=== PATIENT | female | born 1975 | race Asian ===

== ENCOUNTER 2020-06-29 08:14 | Outpatient (REF) | payer OTHER, SELFPAY ==
--- NOTE | 2020-06-29 08:18 | MM_ITS ---
EXAMINATION: MM SCREENING DIGITAL BREAST TOMOSYNTHESIS, BILATERAL CLINICAL INFORMATION: Screening. Asymptomatic. The lifetime risk of breast cancer based on the Tyrer-Cuzick Model is 7.3%. COMPARISON: Mammography: April 07, 2019 and studies dating back to March 26, 2018 TECHNIQUE: Digital breast tomosynthesis is performed in both the craniocaudal and mediolateral oblique views along with computer-aided detection (CAD). Synthesized 2D images are generated from the tomosynthesis. FINDINGS: The breasts are extremely dense, which lowers the sensitivity of mammography (ACR BI-RADS breast composition Category d). There are no significant masses, abnormal calcifications, or other abnormalities. MM/MM tomosynthesis screening BI IMPRESSION: There are no significant changes from prior study. ASSESSMENT: BI-RADS 1: Negative RECOMMENDATION: Routine annual mammography screening. This patient's information was entered into a reminder system with a target due date for their next mammogram.
== END 2020-06-29 08:15 | disposition home or self-care (01) ==
LOC: HO.MAMMO 08:14
PROVIDERS: PCP Internal Medicine; Visit Provider Internal Medicine
DX: Z12.31 Encounter for screening mammogram for malignant neoplasm of breast (principal)
CPT/HCPCS: 77063; 77067

== ENCOUNTER 2020-08-06 08:08 | Outpatient (REF) | payer OTHER, SELFPAY | END 2020-08-06 08:09 | disposition home or self-care (01) | LOC: HO.HMGCLDS 08:08 | PROVIDERS: PCP Internal Medicine; Visit Provider Internal Medicine | DX: Z20.822 Contact with and (suspected) exposure to COVID-19 (principal) | CPT/HCPCS: 36415; C9803; U0003; U0005 ==

== ENCOUNTER 2021-01-12 07:05 | Outpatient (REF) | payer OTHER, SELFPAY ==
[2021-01-12 11:25] LABS: Hematocrit 41.8 % (37-47); Hemoglobin 13.1 g/dl (12.0-16.0); Mean Corpuscular HGB Conc 31.3 g/dl (31.0-35.0); Mean Corpuscular Hemoglobin 25.2 pg (27.0-33.0); Mean Corpuscular Volume 80.5 fL (80-98); Mean Platelet Volume 10.1 fL (9.4-12.3); Platelet Count 249 X10*3/uL (160-400); Red Blood Count 5.19 X10*6/uL (4.20-5.50); Red Cell Distribution Width 13.5 % (11.0-16.0); White Blood Count 7.3 X10*3/uL (4.8-10.8)
[2021-01-12 11:54] LABS: Alanine Aminotransferase 14 U/L (0-31); Albumin Level 4.2 g/dL (3.5-5.0); Alkaline Phosphatase 74 U/L (39-117); Anion Gap 13 (12-20); Aspartate Amino Transferase 16 U/L (5-31); Bilirubin Total 0.5 mg/dL (0.0-1.0); Blood Urea Nitrogen 17 mg/dL (9-16); Carbon Dioxide 23 mmol/L (22-29); Chloride 107 mmol/L (96-108); Cholesterol 193 mg/dL; Estimated Glomerular Filt Rate > 60; Glucose Fasting 96 mg/dL (60-99); HDL Cholesterol 48 mg/dL; LDL Cholesterol Calculated 119 mg/dl; Potassium 4.3 mmol/L (3.3-5.1); Sodium 139 mmol/L (135-145); Triglycerides 133 mg/dL
== END 2021-01-12 07:06 | disposition home or self-care (01) ==
LOC: HO.HMGCLDS 07:05
PROVIDERS: PCP Internal Medicine; Visit Provider Internal Medicine
DX: Z00.00 Encounter for general adult medical examination without abnormal findings (principal)
CPT/HCPCS: 36415; 80053; 80061; 84443; 85027

== ENCOUNTER 2021-03-04 09:00 | Outpatient (RCR) | payer OTHER, SELFPAY ==
--- NOTE | 2020-11-19 12:29 | MHC.PT.EP ---
[facility] [place] Office [place] Office [place] Office [address] Ynes Kaiser [address] [phone] F: [phone] F: [phone] F: [phone] F: [phone] Physical Therapy Plan of Care Date of Evaluation: Date of Surgery: Diagnosis: dorsalgia Assessment: 44 y/o female presents to PT with referral for dorsalgia. Pt complains of low-grade consistent pain in mid-low thoracic area and lumbar region. 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 Of note, there are no significant alleviating factors . Examination shows decreased strength in core/hips, decreased HS/hip flexor/ITB/quad muscle length, increased paraspinal tissue tension, ?SI dysfunction, and impaired postural awareness resulting in pain and difficulty work, sleep, prolonged standing, supervisor post wave, and play with children without pain. S/s consistent with postural dysfunction. Pt would benefit from PT 2x/week for 5 weeks to address impairments, implement HEP, increase strength, and return to PLOF. Pt only able to come 1x/week due to scheduling problems. Frequency and Duration: The patient will be seen 1x/week for 5 weeks Short Term Goals: 2 weeks 1. Independent with HEP 2. Pt will change work station to be ergonomically correct following education and handouts to assist in decreasing pain. 3. 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 I with HEP and self-management of sx 2. Pt will perform ROM/stretching breaks every 20-30min while at work to alleviate sx 3. Pt will improve strength by one MMT grade to faciliate standing > 35min to assist with supervisor post wave Treatment Plan: Modalities to reduce pain, spasms and effusion. Manual therapy to restore motion and function. Therapeutic exercise to improve strength and flexibility. Neuromuscular re-education for posture and balance. Therapeutic activities to return to functional activities of daily living. Electronically signed by: Tiffany Hart PT Please sign and return to therapist. Thank you for your referral.
--- NOTE | 2021-03-04 10:59 | MHC.PT.DC ---
[facility] [place] Office [place] Office [place] Office [address] Ynes Kaiser [address] [phone] F: [phone] F: [phone] F: [phone] F: [phone] Physical Therapy Discharge Report Diagnosis: dorsalgia Date of Surgery: Date of Evaluation: 11/19/20 Date of Discharge: 03/04/21 Treatments to Date: 9 Cancellations to Date: 3 No Shows to Date: 0 Discharge Status: Achieved Goals Improved Function Independent with HEP Discharge Summary: Abigail has been an active participant in her therapy in the clinic with inconsistent home program compliance who has met most of her therapeutic goals, is improved of her pain and function and in agreement with DC at this time. Electronically signed by: Miles Allen PT. Please sign and return to therapist. Thank you for your referral.
== END 2021-03-04 10:59 | disposition home or self-care (01) ==
LOC: HO.PTCHIC 09:00
PROVIDERS: PCP Internal Medicine; Visit Provider Internal Medicine
DX: M54.9 Dorsalgia, unspecified (principal)
CPT/HCPCS: 97110; 97140; 97161; 97535

== ENCOUNTER 2021-05-21 11:09 | Outpatient (REF) | payer OTHER, SELFPAY | END 2021-05-21 11:10 | disposition home or self-care (01) | LOC: HO.LNP 11:09 | PROVIDERS: Visit Provider Physician Assistant Medical | DX: Z20.822 Contact with and (suspected) exposure to COVID-19 (principal) | CPT/HCPCS: U0003; U0005 ==

== ENCOUNTER 2021-05-25 07:00 | Outpatient (RCR) | payer OTHER, SELFPAY ==
--- NOTE | 2021-03-11 14:40 | MHC.PT.EP ---
[facility] [place] Office [place] Office [place] Office [address] Ynes Kaiser [address] [phone] F: [phone] F: [phone] F: [phone] F: [phone] Physical Therapy Plan of Care Date of Evaluation: Date of Surgery: n/a Diagnosis: pain in L shoulder Assessment: pt is a 45/yo F referred to PT for eval/treat of her L shoulder pain. signs and symptoms exhibits R shoulder dysfunction resulting in extremly difficulty and decreased tolerace for overhead activities like reaching for objects in high selfs, washing her hair, and putting her clothing on, as well as decreased tolerance with picking objects off of the floor and fastening seatbelt prior to driving. functional limitation are secondary to restricted R shoulder ROM, postural impairment, TTP of superior GHJ (ACJ region), positive shoulder impingement cluster items (+) painful arc ~50 to 91 which was her end range, + Soto aria, + empty can, and decrecead infraspinatus MMT), and pain. pt is deemed appropriate to recieve skilled PT to address her physical impairment and improve her functional ability. 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 Manual therapy to restore motion and function. Therapeutic exercise to improve strength and flexibility. Neuromuscular re-education for posture and balance. Therapeutic activities to return to functional activities of daily living. Electronically signed by: Andi Neal PT Please sign and return to therapist. Thank you for your referral.
--- NOTE | 2021-10-17 11:33 | MHC.PT.DC ---
[facility] [place] Office [place] Office [place] Office [address] Ynes Kaiser 140 [facility] [phone] F: [phone] F: [phone] F: [phone] F: [phone] Physical Therapy Discharge Report Diagnosis: pain in L shoulder Date of Surgery: n/a Date of Evaluation: 03/11/21 Date of Discharge: 05/25/21 Treatments to Date: 8 Cancellations to Date: 2 No Shows to Date: 0 Discharge Status: Improved Function Independent with HEP Discharge Summary: D/c to HEP with good improvement. Electronically signed by: Andi Neal PT Please sign and return to therapist. Thank you for your referral.
== END 2021-10-17 11:33 | disposition home or self-care (01) ==
LOC: HO.PTCHIC 07:00
PROVIDERS: PCP Internal Medicine; Visit Provider Nurse Practitioner Family
DX: M25.512 Pain in left shoulder (principal)
CPT/HCPCS: 97014; 97110; 97140; 97161

== ENCOUNTER 2021-08-15 07:50 | Outpatient (REF) | payer OTHER, SELFPAY ==
--- NOTE | ~2021-08-15 | MM_ITS ---
EXAMINATION: MM SCREENING DIGITAL BREAST TOMOSYNTHESIS, BILATERAL CLINICAL INFORMATION: Screening. Asymptomatic. The lifetime risk of breast cancer based on the Tyrer-Cuzick Model is 10%. COMPARISON: Mammography: 06/29/2020, 04/07/2019, 03/26/2018 TECHNIQUE: Digital breast tomosynthesis is performed in both the craniocaudal and mediolateral oblique views along with computer-aided detection (CAD). Synthesized 2D images are generated from the tomosynthesis. FINDINGS: The breasts are heterogeneously dense, which may obscure small masses (ACR BI-RADS breast composition Category c). There are no significant masses, abnormal calcifications, or other abnormalities. Parenchymal pattern is similar to prior studies. There are no significant changes. MM/MM tomosynthesis screening BI IMPRESSION: No mammographic evidence of malignancy. ASSESSMENT: BI-RADS 1: Negative RECOMMENDATION: Routine annual mammography screening. This patient's information was entered into a reminder system with a target due date for their next mammogram.
== END 2021-08-15 07:51 | disposition home or self-care (01) ==
LOC: HO.MAMMO 07:50
PROVIDERS: Visit Provider Internal Medicine
DX: Z12.31 Encounter for screening mammogram for malignant neoplasm of breast (principal)
CPT/HCPCS: 77063; 77067

== ENCOUNTER 2021-09-09 17:40 | Outpatient (REF) | payer OTHER, SELFPAY ==
[2021-09-09 18:24] LABS: Influenza A PCR NEGATIVE (Negative); Influenza B PCR NEGATIVE (Negative); Resp Syncy Virus RNA Qual PCR NEGATIVE (Negative); SARS COV2 PCR INHOUSE POSITIVE (Negative)
== END 2021-09-09 17:41 | disposition home or self-care (01) ==
LOC: HO.LNP 17:40
PROVIDERS: Visit Provider Physician Assistant Medical
DX: J02.9 Acute pharyngitis, unspecified (principal); Z20.822 Contact with and (suspected) exposure to COVID-19
CPT/HCPCS: 0241U

== ENCOUNTER 2021-09-20 14:11 | Outpatient (REF) | payer OTHER, SELFPAY ==
[2021-09-20 16:29] LABS: Hematocrit 41.9 % (37.0-47.0); Hemoglobin 13.4 g/dl (12.0-16.0); Mean Corpuscular Hemoglobin 25.5 pg (27.0-33.0); Mean Corpuscular Volume 79.7 fL (80.0-98.0); Mean Platelet Volume 10.2 fL (9.4-12.3); Platelet Count 284 X10*3/uL (160-400); Red Blood Count 5.26 X10*6/uL (4.20-5.50); Red Cell Distribution Width 12.9 % (11.0-16.0); White Blood Count 9.6 X10*3/uL (4.8-10.8)
[2021-09-20 16:38] LABS: Alanine Aminotransferase 77 U/L (0-31); Albumin Level 4.1 g/dL (3.5-5.0); Alkaline Phosphatase 70 U/L (39-117); Anion Gap 14 (12-20); Aspartate Amino Transferase 71 U/L (5-31); Bilirubin Total 0.3 mg/dL (0.0-1.0); Blood Urea Nitrogen 17 mg/dL (9-16); Calcium 9.4 mg/dL (8.4-10.2); Carbon Dioxide 25 mmol/L (22-29); Chloride 101 mmol/L (96-108); Estimated Glomerular Filt Rate > 60; Glucose Random 101 mg/dL (60-115); Potassium 4.1 mmol/L (3.3-5.1); Sodium 136 mmol/L (135-145); Total Protein 7.3 g/dL (6.5-8.0)
== END 2021-09-20 14:12 | disposition home or self-care (01) ==
LOC: HO.HMGCLDS 14:11
PROVIDERS: PCP Internal Medicine; Visit Provider Internal Medicine
DX: U07.1 COVID-19 (principal); R42 Dizziness and giddiness
CPT/HCPCS: 36415; 80053; 85027

== ENCOUNTER 2021-10-25 06:46 | Outpatient (REF) | payer OTHER, SELFPAY ==
[2021-10-25 11:50] LABS: Alanine Aminotransferase 29 U/L (0-31); Albumin Level 3.8 g/dL (3.5-5.0); Alkaline Phosphatase 74 U/L (39-117); Aspartate Amino Transferase 25 U/L (5-31); Bilirubin Direct 0.2 mg/dL (0.0-0.5); Bilirubin Total 0.5 mg/dL (0.0-1.0); Cholesterol 172 mg/dL; HDL Cholesterol 51 mg/dL; LDL Cholesterol Calculated 96 mg/dl; Total Protein 6.5 g/dL (6.5-8.0); Triglycerides 128 mg/dL
== END 2021-10-25 06:47 | disposition home or self-care (01) ==
LOC: HO.HMGCLDS 06:46
PROVIDERS: Visit Provider Internal Medicine
DX: Z00.00 Encounter for general adult medical examination without abnormal findings (principal); R79.89 Other specified abnormal findings of blood chemistry
CPT/HCPCS: 36415; 80061; 80076

== ENCOUNTER 2022-07-24 08:46 | Outpatient (REF) | payer OTHER, SELFPAY ==
--- NOTE | ~2022-07-24 | XR_ITS ---
EXAMINATION: XR SHOULDER, RIGHT CLINICAL INFORMATION: Pain COMPARISON: None TECHNIQUE: 3 views of the right shoulder. FINDINGS: The bones and soft tissues are normal. No fracture. Glenohumeral and acromioclavicular alignment is anatomic with normal joint space. No abnormal soft tissue calcifications. XR/XR shoulder RT min 2V IMPRESSION: Normal right shoulder.
== END 2022-07-24 08:47 | disposition home or self-care (01) ==
LOC: HO.HMGCX 08:46
PROVIDERS: Visit Provider Nurse Practitioner Family
DX: M25.511 Pain in right shoulder (principal)
CPT/HCPCS: 73030

== ENCOUNTER 2022-08-22 07:42 | Outpatient (REF) | payer OTHER, SELFPAY ==
--- NOTE | ~2022-08-22 | MM_ITS ---
EXAMINATION: MM SCREENING DIGITAL BREAST TOMOSYNTHESIS, BILATERAL CLINICAL INFORMATION: Screening. Asymptomatic. The lifetime risk of breast cancer based on the Tyrer-Cuzick Model is 14.3%. COMPARISON: Mammography: August 15, 2021 and studies dating back to March 26, 2018 TECHNIQUE: Digital breast tomosynthesis is performed in both the craniocaudal and mediolateral oblique views along with computer-aided detection (CAD). Synthesized 2D images are generated from the tomosynthesis. FINDINGS: The breasts are heterogeneously dense, which may obscure small masses (ACR BI-RADS breast composition Category c). There are no significant masses, abnormal calcifications, or other abnormalities. MM/MM tomosynthesis screening BI IMPRESSION: No significant changes from prior exam. ASSESSMENT: BI-RADS 1: Negative RECOMMENDATION: Routine annual mammography screening. This patient's information was entered into a reminder system with a target due date for their next mammogram.
== END 2022-08-22 07:43 | disposition home or self-care (01) ==
LOC: HO.MAMMO 07:42
PROVIDERS: PCP Internal Medicine; Visit Provider Internal Medicine
DX: Z12.31 Encounter for screening mammogram for malignant neoplasm of breast (principal)
CPT/HCPCS: 77063; 77067

== ENCOUNTER 2023-02-15 08:11 | Outpatient (AMB) | payer OTHER, SELFPAY ==
[2023-02-15 08:47] VITALS: BP 130/70; PULSE 84; TEMP 36.6; O2SAT 97; BMI 29.0
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
== END 2023-02-15 09:39 | disposition home or self-care (01) ==
PROVIDERS: PCP Internal Medicine; Visit Provider Physician Assistant
DX: M54.9 Dorsalgia, unspecified (principal)
CPT/HCPCS: 99214

== ENCOUNTER 2023-03-06 08:03 | Outpatient (RCR) | payer OTHER, SELFPAY ==
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
== END 2023-04-06 10:07 | disposition home or self-care (01) ==
LOC: HO.PTCHIC 08:03
PROVIDERS: PCP Internal Medicine; Visit Provider Physician Assistant
DX: M54.9 Dorsalgia, unspecified (principal)
CPT/HCPCS: 97110; 97161

== ENCOUNTER 2023-03-07 11:11 | Outpatient (AMB) | payer OTHER, SELFPAY ==
[2023-03-07 11:16] VITALS: BP 126/80; PULSE 87; O2SAT 97; BMI 29.3
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
== END 2023-03-07 12:45 | disposition home or self-care (01) ==
LOC: HO.HMGC 11:12
PROVIDERS: PCP Internal Medicine; Visit Provider Internal Medicine
DX: M25.511 Pain in right shoulder (principal)
CPT/HCPCS: 99213

== ENCOUNTER 2023-03-07 12:18 | Outpatient (REF) | payer OTHER, SELFPAY ==
--- NOTE | ~2023-03-07 | XR_ITS ---
EXAMINATION: XR SHOULDER, RIGHT CLINICAL INFORMATION: Pain in right shoulder COMPARISON: 07/24/2022 TECHNIQUE: AP external rotation, Grashey, scapular Y, and axillary views of the right shoulder. FINDINGS: The bones and soft tissues are normal. No fracture. Glenohumeral and acromioclavicular alignment is anatomic with normal joint space. No abnormal soft tissue calcifications. XR/XR shoulder RT min 2V IMPRESSION: Normal right shoulder, without interval change.
== END 2023-03-07 12:19 | disposition home or self-care (01) ==
LOC: HO.HMGCX 12:18
PROVIDERS: PCP Internal Medicine; Visit Provider Internal Medicine
DX: M25.511 Pain in right shoulder (principal)
CPT/HCPCS: 73030

== ENCOUNTER 2023-04-29 19:20 | Emergency (ER) | payer OTHER, SELFPAY ==
--- NOTE | 2023-04-29 | ECG_ITS ---
Test Reason : CHEST Blood Pressure : / mmHG Vent. Rate : 093 BPM Atrial Rate : 093 BPM P-R Int : 120 ms QRS Dur : 072 ms QT Int : 386 ms P-R-T Axes : 068 -12 019 degrees QTc Int : 479 ms Normal sinus rhythm Minimal voltage criteria for LVH, may be normal variant ( R in aVL ) Low voltage QRS Abnormal ECG No previous ECGs available Referred By: Madonna Hopson Electronically Signed By:JOE SALAZAR MD
--- NOTE | ~2023-04-29 | CT_ITS ---
EXAMINATION: CTA CHEST PE STUDY CLINICAL INFORMATION: SOB, chest pressure COMPARISON: No pertinent prior studies are available for comparison. TECHNIQUE: Prior to contrast administration, noncontrast localization images were obtained. After the administration of 65 mL of Omnipaque nonionic IV contrast, contiguous thin slice helical images were obtained through the thorax. Reformatted MIP images in the coronal and sagittal planes were obtained at the acquisition workstation. This CT examination was performed using dose optimization techniques as appropriate, variously including the following: *Automated exposure control *Adjustment of mA and/or kV according to patient size (this includes techniques or standardized protocols for targeted exams where dose is matched to indication/reason for exam; i.e. extremities or head) *Use of iterative reconstruction technique DLP: 298 mGy-cm. FINDINGS: The bolus timing on this study was acceptable for visualization of the pulmonary arterial tree. There are no intraluminal pulmonary arterial filling defects present to suggest pulmonary embolism. The lungs are clear. No abnormal pulmonary nodules or masses are appreciated. No significant hilar or mediastinal adenopathy. There is no evidence of pleural effusion or pneumothorax. The heart is normal in size. No evidence of ventricular septal bowing or right heart strain. Great vessels are normal. Otherwise the mediastinum is unremarkable. There is no pericardial effusion or pericardial thickening. Limited evaluation of the upper abdominal viscera is unremarkable. CT/CT angio chest PE protocol IMPRESSION: Unremarkable examination. VTE: Negative
[2023-04-29 19:25] VITALS: BP 150/98; PULSE 93; O2SAT 99
[2023-04-29 19:34] VITALS: BP 132/72; PULSE 95; RESP 24; TEMP 36.8; O2SAT 100; BMI 28.3
--- NOTE | 2023-04-29 19:42 | ED_ITS ---
HPI - SOB/Dyspnea General Chief Complaint: Dyspnea Stated Complaint: SOB?, ANXIETY Time Seen by Provider: 04/29/23 19:28 Source: patient Mode of arrival: EMS History of Present Illness HPI Narrative: 47-year-old female presents with acute onset shortness of breath and chest pressure well eating birthday cake with her daughter and reports associated lightheadedness and tachypnea she denies any nausea and states that she is been having increased fatigue for weeks. Patient denies any recent travel or unilateral leg swelling but states that she does take OCPs Related Data Home Medications Medication Instructions Recorded Confirmed yrikoftfeqpf-Fm-anbj-minerals 27 tab PO 07/27/22 03/07/23 mg-0.4 mg tablet (Women's Daily Formula) norethindrone 1 mg-ethinyl 1 tab PO DAILY 02/15/23 03/07/23 estradiol 35 mcg tablet (Alyacen) Previous Rx's Medication Instructions Recorded lidocaine 5 % topical patch 1 patch topical DAILY #15 ea 02/15/23 cyclobenzaprine 10 mg tablet 10 mg PO BEDTIME #30 tabs 03/07/23 nabumetone 500 mg tablet 500 mg PO BID #30 tabs 03/07/23 Allergies Allergy/AdvReac Type Severity Reaction Status Date / Time prednisolone AdvReac Unknown shortness Verified 04/29/23 19:28 of breath Review of Systems 2 Review of Systems: Pertinent positives and negatives as stated in HPI PMFSH Past Medical History Source: nursing notes reviewed Medical History Elevated LFTs Vertigo COVID-19 Right shoulder pain Back pain Normal Pap smear Annual physical exam Family History Family History Father No problems noted. 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 GENERAL: Well developed, well nourished, in no acute distress. HEAD: Normocephalic/atraumatic EYES: PERRLA, EOMI EARS: Ext canals without abnormality, TMs non-bulging and non-erythematous NOSE: Nares patent bilateral OROPHARYNX: no oral lesions noted, posterior pharynx clear and non-erythematous without noted tonsillar enlargement/erythema/exudates NECK: Supple, no adenopathy LUNGS: Normal breath sounds. No adventitious sounds or accessory muscle use. Tachypnea+ SpO2<100> CARDIOVASCULAR: Regular rate and rhythm without noted murmurs, no JVD or lower extremity edema. ABDOMEN: Soft, non-tender, non-distended with bowel sounds. MUSCULOSKELETAL: No tenderness, deformities, or effusions noted on gross inspection. EXTREMITIES: No cyanosis, clubbing or edema. SKIN: Inspection of the skin reveals no rashes NEUROLOGIC: Alert and oriented x 4. Strength and sensation to light touch were grossly intact x 4. Medications Administered Discontinued Medications Generic Name Dose Route Start Last Admin Trade Name Freq PRN Reason Stop Dose Admin Albuterol/Ipratropium 3 ml 04/29/23 20:14 04/29/23 20:35 Albuterol/Iprat 2.5/0.5mg 3 Ml Ampul.Neb INHALE 04/29/23 20:15 3 ml ONCE ONE Administration Iohexol 100 ml 04/29/23 22:34 04/29/23 22:35 Iohexol 350 Mg/Ml 100 Ml Infus..Btl IV 04/29/23 22:35 65 ml ONCE ONE Administration Medical Decision Making Medical Decision Making MDM Narrative: 47-year-old female with history and clinical presentation,DDX: Panic attack/Anxiety, ACS, PE I reviewed all investigations and hematologic indices are grossly within normal limits and stable compared to prior, there is no evidence of leukocytosis or left shift and no anemia or thrombocytopenia. Patient declined DuoNeb treatment, coagulation studies demonstrated D-dimer of 267 and followed up with a CT angio with PE protocol which is negative for VTE. Chemistry indices are grossly within normal limits and do not demonstrate any JOSE A or electrolyte/liver enzyme derangements. Serial high sensitivity troponins are undetectable and beta hCG is undetectable. There are no acute findings on EKG. Urinalysis is negative for UTI or hematuria. My interpretation is that patient experienced a panic attack. Differential Diagnosis Differential Diagnoses: The differential diagnosis associated with the presentation includes Please see the discussion above Admission/Observation Consideration of admission/observation: Escalation of care including admission/observation considered Please see the discussion above Lab Data MDM Lab Attestation statement: I reviewed the patient's lab results. Please see the discussion above 04/29/23 20:00 04/29/23 20:00 Labs: Lab Results 04/29/23 04/29/23 04/29/23 Range/Units 20:00 22:03 23:17 WBC 6.6 (4.8-10.8) X10*3/uL RBC 4.73 (4.20-5.50) X10*6/uL Hgb 12.5 (12.0-16.0) g/dl Hct 37.2 (37.0-47.0) % MCV 78.6 L (80.0-98.0) fL MCH 26.4 L (27.0-33.0) pg MCHC 33.6 (31.0-35.0) g/dl RDW 13.1 (11.0-16.0) % Plt Count 246 (160-400) X10*3/uL MPV 9.7 (9.4-12.3) fL Immature Gran % (Auto) 0.2 (0.0-0.4) % Neut % (Auto) 49.3 (45-73) % Lymph % (Auto) 36.3 (20-40) % Lawrence % (Auto) 8.1 (2-11) % Eos % (Auto) 5.3 H (0-4) % Baso % (Auto) 0.8 (0-2) % Lymph # (Auto) 2.4 (1.2-4.9) X10*3/uL Lawrence # (Auto) 0.5 (0.1-1.2) X10*3/uL Eos # (Auto) 0.4 (0.0-0.4) X10*3/uL Baso # (Auto) 0.1 (0.0-0.2) X10*3/uL Abs Immat Gran (auto) 0.01 (0.00-0.03) X10*3/uL Absolute Neuts (auto) 3.2 (2.0-8.3) x10*3/uL Absolute Nucleated RBC 0.000 (0.0-0.012) X10*3/uL Nucleated RBC % (auto) 0.0 (0.0-0.2) /100WBC PT 10.5 L (11.1-13.3) SEC INR 0.9 (0.9-1.1) D-Dimer High Sensitivty 267 NG/ML Sodium 141 (135-145) mmol/L Potassium 3.6 (3.3-5.1) mmol/L Chloride 110 H (96-108) mmol/L Carbon Dioxide 19 L (22-29) mmol/L Anion Gap 16 (12-20) BUN 13 (9-16) mg/dL Creatinine 0.76 (0.5-1.4) mg/dL Estim Creat Clear Calc 82.5 Estimated GFR > 60 Random Glucose 128 H (60-115) mg/dL Calcium 9.2 (8.4-10.2) mg/dL Total Bilirubin 0.3 (0.0-1.0) mg/dL AST 29 (5-31) U/L ALT 20 (0-31) U/L Alkaline Phosphatase 62 (39-117) U/L Troponin I High Sens < 2.7 < 2.7 (<3.5-17.0) ng/L Total Protein 7.4 (6.5-8.0) g/dL Albumin 4.1 (3.5-5.0) g/dL Beta HCG, Quant < 2 mIU/mL Urine Color Yellow Urine Appearance Clear Urine pH >= 9.0 (5.0-9.0) Ur Specific [place] 1.020 (1.005-1.025) Urine Protein Negative (Neg-Trace) mg/dL Urine Glucose (UA) Negative (Negative) mg/dL Urine Ketones Negative (Negative) mg/dL Urine Blood Negative (Negative) Urine Nitrite Negative (Negative) Ur Leukocyte Esterase Negative (Negative) Independent Interpretation I performed an independent interpretation of an: EKG Interpretation: Normal sinus rhythm, HR-93, no STEMI, IL/QRS/QTC are within normal limits. Radiology Impression Discussion of test interpretation with radiology: I have reviewed the radiologist's reading. Radiologist Impression: Please see the discussion above External Record Review External record reviewed: Outpatient record and Prior outpatient labs Critical Care Time Critical Care Time Critical Care Time: Yes Total Critical Care Time: 30 Attestation: I personally attest to this time spent taking care of the patient. Discharge Plan Discharge Clinical Impression: Panic attack Patient Disposition: Home, Self-Care Instructions: Panic Attack (ED) Additional Instructions: 1. Please follow-up with your primary care doctor by calling the office 1st thing in the morning to set up an appointment for re-evaluation further outpatient management. Return to the ER if you have any acute worsening of your symptoms or new symptoms. Prescriptions: No Action Women's Daily Formula 27-0.4 mg tablet PO ketorolac 15 mg/mL solution 30 mg IM ONCE Qty: 2 0RF Alyacen 135 (28) 1-35 mg-mcg tablet 1 tab PO DAILY lidocaine 5 % adhesive patch,medicated 1 patch topical DAILY Qty: 15 0RF Rx Instructions: leave on most painful area for up to 12 hrs cyclobenzaprine 10 mg tablet 10 mg PO BEDTIME Qty: 30 0RF nabumetone 500 mg tablet 500 mg PO BID Qty: 30 0RF Referrals: Sammi Lang MD [Primary Care Provider] -
[2023-04-29 20:05] LABS: MANUAL DIFF FLAG NO
[2023-04-29 20:07] LABS: Basophils Absolute Auto 0.1 X10*3/uL (0.0-0.2); Basophils Percent Auto 0.8 % (0-2); Eosinophils Absolute Auto 0.4 X10*3/uL (0.0-0.4); Eosinophils Percent Auto 5.3 % (0-4); Hematocrit 37.2 % (37.0-47.0); Hemoglobin 12.5 g/dl (12.0-16.0); Imm Gran Abs Auto 0.01 X10*3/uL (0.00-0.03); Imm Gran Pct Auto 0.2 % (0.0-0.4); Lymphocytes Absolute Auto 2.4 X10*3/uL (1.2-4.9); Lymphocytes Percent Auto 36.3 % (20-40); Mean Corpuscular HGB Conc 33.6 g/dl (31.0-35.0); Mean Corpuscular Hemoglobin 26.4 pg (27.0-33.0); Mean Corpuscular Volume 78.6 fL (80.0-98.0); Mean Platelet Volume 9.7 fL (9.4-12.3); Monocytes Absolute Auto 0.5 X10*3/uL (0.1-1.2); Monocytes Percent Auto 8.1 % (2-11); Neutrophils Absolute Auto 3.2 x10*3/uL (2.0-8.3); Neutrophils Percent Auto 49.3 % (45-73); Platelet Count 246 X10*3/uL (160-400); Red Blood Count 4.73 X10*6/uL (4.20-5.50); Red Cell Distribution Width 13.1 % (11.0-16.0); White Blood Count 6.6 X10*3/uL (4.8-10.8)
[2023-04-29 20:18] LABS: INTERNATIONAL NORM RATIO 0.9 (0.9-1.1); Prothrombin Time 10.5 SEC (11.1-13.3)
[2023-04-29 20:29] LABS: Alanine Aminotransferase 20 U/L (0-31); Albumin Level 4.1 g/dL (3.5-5.0); Alkaline Phosphatase 62 U/L (39-117); Anion Gap 16 (12-20); Aspartate Amino Transferase 29 U/L (5-31); Bilirubin Total 0.3 mg/dL (0.0-1.0); Blood Urea Nitrogen 13 mg/dL (9-16); Calcium 9.2 mg/dL (8.4-10.2); Carbon Dioxide 19 mmol/L (22-29); Chloride 110 mmol/L (96-108); Creatinine Clr Calc Pharmacy 82.5; Estimated Glomerular Filt Rate > 60; Glucose Random 128 mg/dL (60-115); HCG Quantitative < 2 mIU/mL; Potassium 3.6 mmol/L (3.3-5.1); Sodium 141 mmol/L (135-145); Total Protein 7.4 g/dL (6.5-8.0); Troponin-I High Sensitivity < 2.7 ng/L (<3.5-17.0)
[2023-04-29] MEDS: Albuterol/Iprat 2.5/0.5MG 3 ML AMPUL.NEB INHALE (20:35)
[2023-04-29 20:39] VITALS: PULSE 79; RESP 18; O2SAT 100
[2023-04-29 21:06] VITALS: BP 135/73; PULSE 96; RESP 18; O2SAT 100
[2023-04-29 21:47] LABS: D Dimer High Sensitivity 267 NG/ML
[2023-04-29 22:09] LABS: Appearance Urine Clear; Color Urine Yellow; Glucose Urine UA Negative (Negative); Leukocyte Esterase Urine Negative (Negative); Nitrite Urine Negative (Negative); PH >= 9.0 (5.0-9.0); Urine Blood Negative (Negative); Urine Ketones Negative (Negative); Urine Protein Negative (Neg-Trace)
[2023-04-29 22:19] VITALS: BP 134/82; PULSE 83; RESP 15; O2SAT 99
--- NOTE | 2023-04-29 22:21 | PC.NURSE ---
20G IV placed- pt now in CT
[2023-04-29] MEDS: iohexoL 350 MG/ML 100 ML INFUS..BTL IV (22:35)
--- NOTE | 2023-04-29 23:22 | PC.NURSE ---
assumed care of pt
[2023-04-29 23:44] LABS: Troponin-I High Sensitivity < 2.7 ng/L (<3.5-17.0)
== END 2023-04-30 00:03 | disposition home or self-care (01) ==
PROVIDERS: Emergency Provider Student in an Organized Health Care Education/Training Program; PCP Internal Medicine
DX: F41.0 Panic disorder [episodic paroxysmal anxiety] (principal); R06.02 Shortness of breath; F41.1 Generalized anxiety disorder; F43.0 Acute stress reaction; R07.89 Other chest pain; Z79.899 Other long term (current) drug therapy
CPT/HCPCS: 36415; 71275; 80053; 81003; 84484; 84702; 85025; 85379; 85610; 93005; 94640; 99285; Q9967

== ENCOUNTER 2023-05-07 08:00 | Outpatient (RCR) | payer OTHER, SELFPAY ==
--- NOTE | 2023-03-09 08:41 | MHC.PT.EP ---
[facility] [place] Office [place] Office [address] Jie Kaiser [address] [phone] F: [phone] F: [phone] F: [phone] F: [phone] Physical Therapy Plan of Care Date of Evaluation: 03/09/23 Date of Surgery: Diagnosis: R shoulder pain Assessment: Pt is a 47 y/o female who is referred to PT for eval and treatment of R shoulder pain resulting in decreased tolerance for sleep, self-dressing, driving, reaching above shoulder height, and self-hygiene activities secondary to decreased shoulder ROM, decreased shoulder strength, tissue tenderness, and pain. Pt is deemed an appropriate candidate to receive skilled PT services to address her impairments and improve her function. Frequency and Duration: The patient will be seen 2x/wk x5wks Short Term Goals: Initiate HEP Improve baseline pain <5/10; initial: 7-9/10 Custodial Goals: Sweet with HEP Pt will be able to achieve at least 120 degrees shoulder flexion AROM; initial: 28 degrees Pt will improve SPADI outcome measure score by at least 13 points; initial: 103 Pt will be able to place an object on a high shelf with <5/10 difficulty; initial: 9/10 difficulty Treatment Plan: Modalities to reduce pain, spasms and effusion. Manual therapy to restore motion and function. Therapeutic exercise to improve strength and flexibility. Neuromuscular re-education for posture and balance. Therapeutic activities to return to functional activities of daily living. Electronically signed by: Miles Allen PT. Please sign and return to therapist. Thank you for your referral.
--- NOTE | 2023-06-26 11:37 | MHC.PT.DC ---
[facility] [place] [facility] [place] Office [address] Ynes Kaiser [address] [phone] F: [phone] F: [phone] F: [phone] F: [phone] Physical Therapy Discharge Report Diagnosis: R shoulder pain Date of Surgery: Date of Evaluation: 03/09/23 Date of Discharge: 05/12/23 Treatments to Date: 9 Cancellations to Date: No Shows to Date: Discharge Status: Improved Function Independent with HEP Discharge Summary: 05/07/23: pt continues to progress well with skilled PT. full pain free AROM. strength progressing slowly. she does have updated HEP and we will d/c to HEP NV. 04/26/23: we held on progression today due to soreness of unknown origin. we will resume progress NV. 04/18/23: pt continues to progress well with skilled PT. minimal s/s, only with ER. continue to progress as tolerated. 04/11/23: pt is progressing well with less s/s, improved ROM and strength. we will continue to progress as tolerated 4 more visits then transition to HEP. 04/04/23: pt with improved activity tolerance with less pain. ROM improving. she is compliant with HEP and noticing functional gains. 03/28/23: pt progressing well with ROM and strength. activity tolerance improving as well. 03/21/23: we reviewed program, educated on pain free ex and issued updated HEP. pt with no new s/s. progress as tolerated NV. Pt with some discomfort noted with pulleys and rows. we did discuss HEP, use of CP to finish. assess response and progress as tolerated. Electronically signed by: Andi Neal, PT Please sign and return to therapist. Thank you for your referral.
== END 2023-06-26 11:37 | disposition home or self-care (01) ==
LOC: HO.PTCHIC 08:00
PROVIDERS: PCP Internal Medicine; Visit Provider Internal Medicine
DX: M25.511 Pain in right shoulder (principal)
CPT/HCPCS: 97110; 97161

== ENCOUNTER 2023-05-09 13:33 | Outpatient (AMB) | payer OTHER, SELFPAY ==
--- NOTE | 2023-05-09 13:36 | MHC.PC.OV ---
Vital Signs 05/09/23 13:37 Height 5 ft 1 in Weight 152 lb BMI 28.7 BP 106/70 Blood Pressure Location Rt brachial Position Sitting Pulse 80 Pulse Source Pulse Oximeter Pulse Oximetry (%) 99 Oxygen Delivery Method Room Air Intake Visit Reasons: [facility] Anxiety/Panic attack Allergies prednisolone Adverse Reaction (Unknown, Verified 05/09/23 13:38) shortness of breath Medication List - Last Reconciled 05/09/23 by Sammi Lang MD cyclobenzaprine 10 mg PO BEDTIME guhhjrpbclnw-Tk-qtlj-minerals (Women's Daily Formula) tabs PO nabumetone 500 mg PO BID norethindrone-ethin estradiol 1-35 mg-mcg (Alyacen) 1 tab PO DAILY Tobacco use date assessed: 05/09/23 Dental Screening Dental Screen Date: 05/09/23 Did you have a dental visit in the last 12 months?: Yes Did you have a dental problem in the last 6 months where you did not have access to dental care?: No Was dental information given to patient?: Patient has dentist HPI [facility] Anxiety/Panic attack HPI Details Pt presents for f/u of ER visit for panic attack. Pt has been under a lot of chronic stress with her parents and her father in law and feeling overwhelmed at the time. She denies depression insomnia or suicidal ideation [facility] Medical History Elevated LFTs Vertigo COVID-19 Right shoulder pain Back pain Normal Pap smear Annual physical exam Family History Father No problems noted. 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 How often do you have a drink containing alcohol?: Monthly or less 2. How many drinks containing alcohol do you have on a typical day when you are drinking?: 1 or 2 3. How often do you have six or more drinks on one occasion?: Never Total Score: 1 ETHAN-7 AMB Questionnaire ETHAN-7 Date ETHAN - 7 assessed: 11/03/22 Source: Developed by Drs. Esdon Dowell, Laura Santos, Mathew Ramirez and colleagues, with an educational jeanna from [employer]. Review of Systems Const All systems reviewed & are unremarkable except as noted in HPI and below Reports no additional complaints Eyes Reports no additional complaints ENT Reports no additional complaints Card Reports no additional complaints Resp Reports no additional complaints GI Reports no additional complaints Reports no additional complaints Physical exam (Primary Care) Vital Signs: Last Vital Signs Pulse 80 05/09/23 13:37 BP 106/70 05/09/23 13:37 Pulse Ox 99 05/09/23 13:37 Oxygen Delivery Method Room Air 05/09/23 13:37 BMI result Body Mass Index 28.7 Tobacco/Smoking Status: Tobacco use Status Tobacco use date assessed 05/09/23 05/09/23 13:42 Patient Tobacco Use Status Never used Tobacco 05/09/23 13:42 e-Cigarette/Vaping Use Never Used 05/09/23 13:42 Thrive Assessment: Date of Thrive Assessment Date Thrive assessed 11/03/22 05/09/23 13:42 Const General: no acute distress HENMT Head: Yes normal to inspection Face and sinus: Yes normal facial exam Eyes General: appearance normal, both eyes and all related structures Neck Neck: Yes supple Resp Effort & Inspection: normal respiratory effort Auscultation: clear to auscultation bilaterally Cardio Rhythm: regular rhythm Heart sounds: S1 normal heart sound present and S2 normal heart sound present Assessment and Plan Assessment & Plan (1) Anxiety: Code(s): F41.9 - Anxiety disorder, unspecified Plan: Stress management discussed with the patient. She is looking for counselor. Patient declined medications Medications: Refilled nabumetone 500 mg PO BID 30 tabs 0RF cyclobenzaprine 10 mg PO BEDTIME 30 tabs 0RF Coding Level of Care Code Est Pt Level 3 (67578) Diagnoses Anxiety F41.9
[2023-05-09 13:37] VITALS: BP 106/70; PULSE 80; O2SAT 99; BMI 28.7
== END 2023-05-09 14:18 | disposition home or self-care (01) ==
PROVIDERS: PCP Internal Medicine; Visit Provider Internal Medicine
DX: F41.9 Anxiety disorder, unspecified (principal)
CPT/HCPCS: 99213

== ENCOUNTER 2023-07-09 08:00 | Outpatient (RCR) | payer OTHER, SELFPAY ==
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
== END 2024-02-25 14:50 | disposition home or self-care (01) ==
LOC: HO.PTCHIC 08:00
PROVIDERS: PCP Internal Medicine; Visit Provider Internal Medicine
DX: M54.9 Dorsalgia, unspecified (principal)
CPT/HCPCS: 97110; 97161

== ENCOUNTER → 2023-09-12 07:30 | Outpatient (BNV) | payer OTHER, SELFPAY | PROVIDERS: PCP Internal Medicine; Visit Provider Radiology Diagnostic Radiology | DX: Z12.31 Encounter for screening mammogram for malignant neoplasm of breast (principal) | CPT/HCPCS: 77063; 77067 ==

== ENCOUNTER 2023-09-12 07:44 | Outpatient (REF) | payer OTHER, SELFPAY | END 2023-09-12 07:45 | disposition home or self-care (01) | LOC: HO.MAMMO 07:44 | PROVIDERS: PCP Internal Medicine; Visit Provider Internal Medicine | DX: Z12.31 Encounter for screening mammogram for malignant neoplasm of breast (principal) | CPT/HCPCS: 77063; 77067 ==

== ENCOUNTER 2023-12-21 08:20 | Outpatient (AMB) | payer OTHER, SELFPAY ==
[2023-12-21 08:27] VITALS: BP 110/74; PULSE 75; O2SAT 97; BMI 28.9
--- NOTE | 2023-12-21 08:27 | MHC.PC.OV ---
Vital Signs 12/21/23 08:27 Height 5 ft 1 in Weight 153 lb BMI 28.9 BP 110/74 Blood Pressure Location Lt brachial Position Sitting Pulse 75 Pulse Source Pulse Oximeter Pulse Oximetry (%) 97 Oxygen Delivery Method Room Air Intake Visit Reasons: Annual PE Intake Note: Pt is here today for PE. Allergies prednisolone Adverse Reaction (Unknown, Verified 12/21/23 08:32) shortness of breath Medication List - Last Reconciled 12/21/23 by Sammi Lang MD cyclobenzaprine 10 mg PO BEDTIME zbopqefrtuck-Qz-fsfl-minerals (Women's Daily Formula) tabs PO nabumetone 500 mg PO BID norethindrone-ethin estradiol 1-35 mg-mcg ([place]acen) 1 tab PO DAILY Tobacco use date assessed: 12/21/23 Dental Screening Dental Screen Date: 12/21/23 Did you have a dental visit in the last 12 months?: Yes Did you have a dental problem in the last 6 months where you did not have access to dental care?: No Was dental information given to patient?: Patient has dentist HPI Annual PE HPI Details Pt presents for PE. She is going to [facility] to visit her family in August. [facility] Medical History Elevated LFTs Vertigo COVID-19 Right shoulder pain Back pain Normal Pap smear Annual physical exam Surgical History No pertinent past surgical history Family History Father No problems noted. 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 1. Little interest or pleasure in doing things: not at all 2. Feeling down, depressed, or hopeless: not at all 3. Trouble falling or staying asleep, or sleeping too much: not at all 4. Feeling tired or having little energy: not at all 5. Poor appetite or overeating: not at all 6. Feeling bad about yourself - or that you are a failure or have let yourself or your family down: not at all 7. Trouble concentrating on things, such as reading the newspaper or watching television: not at all 8. Moving or speaking so slowly that other people could have noticed. Or the opposite - being so fidgety or restless that you have been moving around a lot more than usual: not at all 9. Thoughts that you would be better off or of hurting yourself in some way: not at all Total score: 0 Depression Screening Interpretation: Negative Depression Screening Done: Yes Source: Developed by Drs. Edson Dowell, Laura Santos, Mathew Ramirez and colleagues, with an educational jeanna from [employer]. Thrive Questionnaire Date Thrive assessed: 12/21/23 I am a: Patient What is your living situation today?: I have a steady place to live Within the past 12 months, did the food you bought not last and you didn't have the money to get more?: Never true Within the past 12 months, did you worry whether your food would run out before you got money to buy more?: Never true Do you have trouble paying for medicines?: No Do you have trouble getting transportation to medical appointments?: No Do you have trouble paying your heating and electricity bill?: No Do you have trouble taking care of your child, family member or friend?: No Do you have trouble with day-to-day activities such as bathing, preparing meals, shopping, managing finances, etc.?: No Are you currently unemployed and looking for a job?: No Are you interested in more education?: No Please select the resources that you would like help with: None THRIVE Score: 0 AUDIT C Alcohol Use Questionnaire (AUDIT-C) 1. How often do you have a drink containing alcohol?: Monthly or less 2. How many drinks containing alcohol do you have on a typical day when you are drinking?: 1 or 2 3. How often do you have six or more drinks on one occasion?: Never Total Score: 1 ETHAN-7 AMB Questionnaire ETHAN-7 Date ETHAN - 7 assessed: 12/21/23 Feeling nervous, anxious, or on edge: 0 = Not at all Not being able to stop or control worryin = Not at all Worrying too much about different things: 0 = Not at all Trouble relaxin = Not at all Being so restless that it is hard to sit still: 0 = Not at all Becoming easily annoyed or irritable: 0 = Not at all Feeling afraid as if something awful might happen: 0 = Not at all Total ETHAN-7 score (0-4 normal; 5-9 mild; 10-14 moderate; 15-21 severe): 0 Source: Developed by Drs. Edson Dowell, Laura Santos, Mathew Ramirez and colleagues, with an educational jeanna from [employer]. Review of Systems Const All systems reviewed & are unremarkable except as noted in HPI and below Reports no additional complaints Eyes Reports no additional complaints ENT Reports no additional complaints Card Reports no additional complaints Resp Reports no additional complaints GI Reports no additional complaints Physical exam (Primary Care) Vital Signs: Last Vital Signs Pulse 75 12/21/23 08:27 BP 110/74 12/21/23 08:27 Pulse Ox 97 12/21/23 08:27 Oxygen Delivery Method Room Air 12/21/23 08:27 BMI result Body Mass Index 28.9 Tobacco/Smoking Status: Tobacco use Status Tobacco use date assessed 12/21/23 12/21/23 08:35 Patient Tobacco Use Status Never used Tobacco 12/21/23 08:35 e-Cigarette/Vaping Use Never Used 12/21/23 08:28 PHQ-9: PHQ-9 Score PHQ-9: Total score 0 12/21/23 08:35 Depression Screening Interpretation: Negative Thrive Assessment: Date of Thrive Assessment Date Thrive assessed 12/21/23 12/21/23 08:35 Const General: no acute distress HENMT Head: Yes normal to inspection Ears: hearing grossly normal bilaterally Face and sinus: Yes normal facial exam Mouth: Normal oral and palatal mucosa present Throat: Yes posterior oropharynx normal Eyes General: appearance normal, both eyes and all related structures Neck Neck: Yes no lymphadenopathy and Yes supple Resp Effort & Inspection: normal respiratory effort Auscultation: clear to auscultation bilaterally Cardio Rhythm: regular rhythm Heart sounds: S1 normal heart sound present and S2 normal heart sound present GI Inspection: Yes normal to inspection Palpation (GI): Soft to palpation Percussion: Yes normal to percussion Auscultation: normal bowel sounds Assessment and Plan Assessment & Plan (1) Annual physical exam: Code(s): Z00.00 - Encounter for general adult medical examination without abnormal findings Plan: Well-balanced diet regular exercise weight loss discussed with the patient. 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 Patient declined colonoscopy she will return for fasting blood work (2) Elevated LFTs: Code(s): R79.89 - Other specified abnormal findings of blood chemistry Orders: Orders Comprehensive [place]. Panel Fast Today R7. - Other specified abnormal findings of blood chemistry, Z00.00 - Encounter for general adult medical examination without abnormal findings Lipid Panel Today R7. - Other specified abnormal findings of blood chemistry, Z00.00 - Encounter for general adult medical examination without abnormal findings Hemoglobin A1c Today R7. - Other specified abnormal findings of blood chemistry, Z00.00 - Encounter for general adult medical examination without abnormal findings UA w Microscopic Today R7. - Other specified abnormal findings of blood chemistry, Z00.00 - Encounter for general adult medical examination without abnormal findings Complete Blood Count Auto Diff Today R7. - Other specified abnormal findings of blood chemistry, Z00.00 - Encounter for general adult medical examination without abnormal findings TSH reflex Free T4 Today R7. - Other specified abnormal findings of blood chemistry, Z00.00 - Encounter for general adult medical examination without abnormal findings Medications: New meloxicam 15 mg PO DAILY 30 tabs 0RF Discontinued cyclobenzaprine Discontinued Reason: Doctor's Order 10 mg PO BEDTIME 30 tabs 0RF nabumetone Discontinued Reason: Doctor's Order 500 mg PO BID 30 tabs 0RF Coding Level of Care Code Est Pt Prev Care 40-64y(39186) Diagnoses Annual physical exam Z00.00 Elevated LFTs R79.
== END 2023-12-21 09:33 | disposition home or self-care (01) ==
PROVIDERS: PCP Internal Medicine; Visit Provider Internal Medicine
DX: Z00.00 Encounter for general adult medical examination without abnormal findings (principal); R79.89 Other specified abnormal findings of blood chemistry
CPT/HCPCS: 99396

== ENCOUNTER 2024-02-13 08:03 | Outpatient (AMB) | payer OTHER, SELFPAY ==
[2024-02-13 08:08] VITALS: BP 118/80; PULSE 67; TEMP 36.7; O2SAT 98; BMI 30.2
--- NOTE | 2024-02-13 08:08 | AM.OFFWIN_ITS ---
Intake Vital Signs 02/13/24 08:08 Height 5 ft 1 in Weight 160 lb BMI 30.2 BP 118/80 Blood Pressure Location Lt brachial Position Sitting Pulse 67 Pulse Source Pulse Oximeter Temp 98.1 F Temp Source Oral Pulse Oximetry (%) 98 Oxygen Delivery Method Room Air Intake Visit Reasons: EP diarrhea Intake Note: pt c/o diarrhea. Started 6 days ago. Taking Immodium. Not much relief Patient Tobacco Use Status: Never used Tobacco Allergies prednisolone Adverse Reaction (Unknown, Verified 02/13/24 08:20) shortness of breath Do you need a note to return to daycare/school/sports/work: Yes HPI HPI Comments History of Present Illness Details Patient is a 48-year-old female complaining of 60s of diarrhea. She states she had 2 days of diarrhea, then took 2 Imodium ED and then she had relief in her symptoms stopped for 3 days and then they started up again yesterday. She denies any fevers, any blood or black in her stool, she denies any excessively watery stool. She denies any recent antibiotic use or international travel. She has been able to eat and drink okay and denies any nausea or vomiting. She states she does not know if she has diverticulitis because she has never had a colonoscopy, she states she still has her gallbladder. She states the diarrhea is not worse immediately after eating. She denies any sick contacts or upper respiratory symptoms. [facility] Medical History Elevated LFTs Vertigo COVID-19 Right shoulder pain Back pain Normal Pap smear Annual physical exam Surgical History No pertinent past surgical history Family History Father No problems noted. 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 Cognitive needs: No Hearing needs: No Vision needs: No Review of Systems Const All systems reviewed & are unremarkable except as noted in HPI and below Physical Exam Vital Signs: Last Vital Signs Temp 98.1 F 02/13/24 08:08 Pulse 67 02/13/24 08:08 BP 118/80 02/13/24 08:08 Pulse Ox 98 02/13/24 08:08 Oxygen Delivery Method Room Air 02/13/24 08:08 BMI result Body Mass Index 30.2 Const General: cooperative, healthy appearing, comfortable, no acute distress and well developed Orientation/consciousness: patient oriented x3 Limitations: no limitations HEENT Head: Yes normal to inspection Ears: hearing grossly normal bilaterally General nose exam: Normal external nose present Face and sinus: Yes normal facial exam Eyes General: appearance normal, both eyes and all related structures Neck Neck: Yes normal visual inspection and Yes full ROM Resp Effort & Inspection: normal respiratory effort and able to speak in complete sentences GI Inspection: Yes normal to inspection Palpation (GI): Soft to palpation and nontender Skin General skin exam: no rashes or lesions noted Neuro General: patient oriented x3 Extrem General: Yes normal to inspection Assessment & Plan Assessment & Plan (1) Diarrhea: Code(s): R19.7 - Diarrhea, unspecified Qualifiers: Diarrhea type: unspecified type Qualified Code(s): R19.7 - Diarrhea, unspecified Plan: Vital signs are stable, patient is well-appearing. Physical exam unremarkable. Gave patient a GI panel to take home to provide a sample to the lab at her convenience. Did also swab for COVID flu and RSV to be thorough with her GI symptoms. Recommended rest hydration and if she can not keep up with her p.o. intake which isn't a problem thus far, she should go to the emergency room for further workup Plan see above Orders: Orders SARS-CoV2/FLU/RSV Today J06.9 - Acute upper respiratory infection, unspecified GI Panel Today R19.7 - Diarrhea, unspecified Coding Level of Care Code Est Pt Level 4 (50259) Diagnoses Diarrhea, unspecified type R19.7 Diarrhea type: unspecified type
== END 2024-02-13 08:49 | disposition home or self-care (01) ==
PROVIDERS: PCP Internal Medicine; Visit Provider Physician Assistant
DX: R19.7 Diarrhea, unspecified (principal)
CPT/HCPCS: 99214

== ENCOUNTER 2024-02-13 12:22 | Outpatient (REF) | payer OTHER, SELFPAY ==
[2024-02-13 13:12] LABS: Influenza A PCR NEGATIVE (Negative); Influenza B PCR NEGATIVE (Negative); Resp Syncy Virus RNA Qual PCR NEGATIVE (Negative); SARS COV2 PCR INHOUSE NEGATIVE (Negative)
== END 2024-02-13 12:23 | disposition home or self-care (01) ==
LOC: HO.LNP 12:22
PROVIDERS: Visit Provider Physician Assistant
DX: J06.9 Acute upper respiratory infection, unspecified (principal)
CPT/HCPCS: 0241U

== ENCOUNTER 2024-04-21 08:01 | Outpatient (AMB) | payer OTHER, SELFPAY ==
[2024-04-21 08:07] VITALS: BP 112/70; PULSE 76; O2SAT 98; BMI 29.5
--- NOTE | 2024-04-21 08:07 | AM.OFFWIN_ITS ---
Intake Vital Signs 04/21/24 08:07 Height 5 ft 1 in Weight 156 lb BMI 29.5 BP 112/70 Blood Pressure Location Rt brachial Position Sitting Pulse 76 Pulse Source Pulse Oximeter Pulse Oximetry (%) 98 Oxygen Delivery Method Room Air Intake Visit Reasons: EP RT eye swelling, redness, irritation Intake Note: Patient here for right eye swelling, redness and irritation. denies any vision changes. Patient Tobacco Use Status: Never used Tobacco Allergies prednisolone Adverse Reaction (Unknown, Verified 04/21/24 08:08) shortness of breath Do you need a note to return to daycare/school/sports/work: Yes HPI HPI Comments History of Present Illness Details Patient is a 48-year-old female complaining of 1 week of worsening right eye redness and slight irritation. She denies any changes in her vision. She denies wearing contacts. She states that it just feels like there is something in her eye but she does not recall anything going into her eye at any point over the last week. She tells me she does have an appointment with her eye doctor in 1 week. [facility] Medical History Elevated LFTs Vertigo COVID-19 Right shoulder pain Back pain Normal Pap smear Annual physical exam Surgical History No pertinent past surgical history Family History Father No problems noted. 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 Cognitive needs: No Hearing needs: No Vision needs: No Review of Systems Const All systems reviewed & are unremarkable except as noted in HPI and below Physical Exam Vital Signs: Last Vital Signs Pulse 76 04/21/24 08:07 BP 112/70 04/21/24 08:07 Pulse Ox 98 04/21/24 08:07 Oxygen Delivery Method Room Air 04/21/24 08:07 BMI result Body Mass Index 29.5 Const General: cooperative, healthy appearing, comfortable, no acute distress and well developed Orientation/consciousness: patient oriented x3 Limitations: no limitations HEENT Head: Yes normal to inspection Eyes Alignment and Position: alignment normal and position normal Periorbital: periorbital findings normal Eyelids: Yes eyelids normal Conjunctivae: conjunctival abnormal right conjunctival injection diffuse; without discharge Pupils: Equal, round and reactive pupils present EOM: EOMs intact bilaterally Neck Neck: Yes normal visual inspection and Yes supple Neuro General: patient oriented x3 Cranial nerves: Yes Equal, round and reactive pupils present Assessment & Plan Assessment & Plan (1) Redness of eye, right: Code(s): H57.89 - Other specified disorders of eye and adnexa Plan: Educated patient that the best solution is to do a fluorescein eye exam but patient states she does not like eyedrops and refused the exam. We will prescribe erythromycin ointment, this is likely a corneal abrasion. But I did tell patient if her irritation became pain or she had any changes in her vision that she should go to the emergency department or seek care with an review trainer immediately. Plan see above Medications: New erythromycin Apply to left eye 4 times a day while awake 0.5 inches ophthalmic (eye) QID 3.5 grams 0RF Coding Level of Care Code Est Pt Level 3 (17683) Diagnoses Redness of eye, right H57.89
== END 2024-04-21 08:23 | disposition home or self-care (01) ==
PROVIDERS: PCP Internal Medicine; Visit Provider Physician Assistant
DX: H57.89 Other specified disorders of eye and adnexa (principal)

== ENCOUNTER 2024-06-13 10:08 | Outpatient (AMB) | payer OTHER, SELFPAY ==
[2024-06-13 10:17] VITALS: BP 114/66; PULSE 87; O2SAT 98; BMI 29.3
--- NOTE | 2024-06-13 10:17 | MHC.PC.OV ---
Vital Signs 06/13/24 10:17 Height 5 ft 1 in Weight 155 lb BMI 29.3 BP 114/66 Blood Pressure Location Lt brachial Position Sitting Pulse 87 Pulse Source Pulse Oximeter Pulse Oximetry (%) 98 Oxygen Delivery Method Room Air Intake Visit Reasons: Trouble Sleeping Intake Note: Pt is here today for a sick visit. Pt c/o trouble sleeping and snoring at night. Pt states that she is feeling very tired when she get up in the morning. Pt also states that she has been having nose bleeds on the R side for the last 4-5 days. Allergies prednisolone Adverse Reaction (Unknown, Verified 06/13/24 10:21) shortness of breath Medication List - Last Reconciled 06/13/24 by Sammi Lang MD cyclobenzaprine 10 mg PO BEDTIME PRN erythromycin 0.5 inches ophthalmic (eye) QID meloxicam 15 mg PO DAILY metronidazole 0.75% 1 appl topical BID yrwhagtgnaqx-Gb-vyhg-minerals (Women's Daily Formula) tabs PO nabumetone 500 mg PO BID PRN Tobacco use date assessed: 06/13/24 Dental Screening Dental Screen Date: 06/13/24 Did you have a dental visit in the last 12 months?: Yes Did you have a dental problem in the last 6 months where you did not have access to dental care?: No Was dental information given to patient?: Patient has dentist HPI Trouble Sleeping HPI Details Pt presents c/o her noticed her to have sleep apnea episodes and loud snoring. She complains daytime sleepiness and and unrestful sleep PFSH Medical History Elevated LFTs Vertigo COVID-19 Right shoulder pain Back pain Normal Pap smear Annual physical exam Surgical History No pertinent past surgical history Family History Father No problems noted. 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 1. Little interest or pleasure in doing things: not at all 2. Feeling down, depressed, or hopeless: not at all 3. Trouble falling or staying asleep, or sleeping too much: several days 4. Feeling tired or having little energy: several days 5. Poor appetite or overeating: several days 6. Feeling bad about yourself - or that you are a failure or have let yourself or your family down: not at all 7. Trouble concentrating on things, such as reading the newspaper or watching television: not at all 8. Moving or speaking so slowly that other people could have noticed. Or the opposite - being so fidgety or restless that you have been moving around a lot more than usual: not at all 9. Thoughts that you would be better off or of hurting yourself in some way: not at all Total score: 3 Depression Screening Interpretation: Negative Depression Screening Done: Yes 96504 - PHQ-9 Billing: Yes Source: Developed by Drs. Edson Dowell, Laura Santos, Mathew Ramirez and colleagues, with an educational jeanna from [employer]. Thrive Questionnaire Date Thrive assessed: 06/13/24 I am a: Patient What is your living situation today?: I have a steady place to live Within the past 12 months, did the food you bought not last and you didn't have the money to get more?: Never true Within the past 12 months, did you worry whether your food would run out before you got money to buy more?: Never true Do you have trouble paying for medicines?: No Do you have trouble getting transportation to medical appointments?: No Do you have trouble paying your heating and electricity bill?: No Do you have trouble taking care of your child, family member or friend?: No Do you have trouble with day-to-day activities such as bathing, preparing meals, shopping, managing finances, etc.?: No Are you currently unemployed and looking for a job?: No Are you interested in more education?: No Please select the resources that you would like help with: None Currently or been in a relationship where the following occur: No concerns reported THRIVE Score: 0 AUDIT C Alcohol Use Questionnaire (AUDIT-C) 1. How often do you have a drink containing alcohol?: 2-4 times a month 2. How many drinks containing alcohol do you have on a typical day when you are drinking?: 1 or 2 3. How often do you have six or more drinks on one occasion?: Never Total Score: 2 ETHAN-7 AMB Questionnaire ETHAN-7 Date ETHAN - 7 assessed: 06/13/24 Feeling nervous, anxious, or on edge: 1 = Several days Not being able to stop or control worryin = Several days Worrying too much about different things: 1 = Several days Trouble relaxin = Several days Being so restless that it is hard to sit still: 0 = Not at all Becoming easily annoyed or irritable: 0 = Not at all Feeling afraid as if something awful might happen: 0 = Not at all Total ETHAN-7 score (0-4 normal; 5-9 mild; 10-14 moderate; 15-21 severe): 4 Source: Developed by Drs. Edson Dowell, Laura Santos, Mathew Ramirez and colleagues, with an educational jeanna from [employer]. ETHAN-7 Assessment Billing ETHAN-7 Assessment Tool: ETHAN-7 Assessment 34739 Review of Systems Const All systems reviewed & are unremarkable except as noted in HPI and below Eyes Reports no additional complaints ENT Reports no additional complaints Card Reports no additional complaints Resp Reports no additional complaints GI Reports no additional complaints Reports no additional complaints Physical exam (Primary Care) Vital Signs: Last Vital Signs Pulse 87 06/13/24 10:17 BP 114/66 06/13/24 10:17 Pulse Ox 98 06/13/24 10:17 Oxygen Delivery Method Room Air 06/13/24 10:17 BMI result Body Mass Index 29.3 Tobacco/Smoking Status: Tobacco use Status Tobacco use date assessed 06/13/24 06/13/24 10:23 Patient Tobacco Use Status Never used Tobacco 06/13/24 10:23 e-Cigarette/Vaping Use Never Used 06/13/24 10:23 PHQ-9: PHQ-9 Score PHQ-9: Total score 3 06/13/24 10:58 Depression Screening Interpretation: Negative Thrive Assessment: Date of Thrive Assessment Date Thrive assessed 06/13/24 06/13/24 10:23 Currently or been in a relationship where the following occur: No concerns reported Const General: no acute distress HENMT Mouth: Normal oral and palatal mucosa present Eyes General: appearance normal, both eyes and all related structures Neck Neck: Yes supple Resp Effort & Inspection: normal respiratory effort Auscultation: clear to auscultation bilaterally Cardio Rhythm: regular rhythm Heart sounds: S1 normal heart sound present and S2 normal heart sound present Coding Level of Care Code Est Pt Level 3 (13817) Diagnoses Sleep apnea G47.30 Additional Codes ETHAN-7 Assessment Billing - ETHAN-7 Assessment Tool: ETHAN-7 Assessment 16621 ([id number]) PHQ-9 - 94270 - PHQ-9 Billing: Yes ([id number]) Assessment & Plan Assessment & Plan (1) Sleep apnea: Code(s): G47.30 - Sleep apnea, unspecified Category: Medical Plan: Schedule a sleep study to evaluate for obstructive sleep apnea Orders: Orders RT home sleep study Today G47.30 - Sleep apnea, unspecified Medications: Refilled meloxicam 15 mg PO DAILY 30 tabs 2RF
== END 2024-06-13 13:59 | disposition home or self-care (01) ==
PROVIDERS: PCP Internal Medicine; Visit Provider Internal Medicine
DX: G47.30 Sleep apnea, unspecified (principal)

== ENCOUNTER → 2024-06-13 10:08 | Outpatient (BNVA) | payer OTHER, SELFPAY | PROVIDERS: PCP Internal Medicine; Visit Provider Internal Medicine | DX: G47.30 Sleep apnea, unspecified (principal) | CPT/HCPCS: 96127 ==

== ENCOUNTER 2024-07-09 08:01 | Outpatient (AMB) | payer OTHER, SELFPAY ==
[2024-07-09 08:14] VITALS: BP 110/68; PULSE 84; TEMP 37.3; O2SAT 98; BMI 29.3
--- NOTE | 2024-07-09 08:14 | AM.OFFWIN_ITS ---
Intake Vital Signs 07/09/24 08:14 Height 5 ft 1 in Weight 155 lb BMI 29.3 BP 110/68 Blood Pressure Location Rt brachial Position Sitting Pulse 84 Pulse Source Pulse Oximeter Temp 99.1 F Temp Source Oral Pulse Oximetry (%) 98 Oxygen Delivery Method Room Air Intake Visit Reasons: EP-stuffy nose Intake Note: Pt is here today for a walk in visit. Pt c/o nasal congestion and sore throat on and off for 3 weeks now. Pt states that she tried Mucinex. Pt states that she has yellow mucus. Patient Tobacco Use Status: Never used Tobacco Allergies prednisolone Adverse Reaction (Unknown, Verified 07/09/24 08:17) shortness of breath Do you need a note to return to daycare/school/sports/work: Yes HPI HPI Comments History of Present Illness Details She presents to office with ST and congestion x 3 weeks States symptoms alternating She has tried Mucinex with some relief but not resolved No fever or chills Minimal cough and sneezing Slight discomfort R ear pain. + blocked No sick contacts at home but + sick people at work She said + tenderness to sinuses under eyes,mkmm PFSH Medical History Elevated LFTs Vertigo COVID-19 Right shoulder pain Back pain Normal Pap smear Annual physical exam Surgical History No pertinent past surgical history Family History Father No problems noted. 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 Cognitive needs: No Hearing needs: No Vision needs: No Review of Systems Const Denies chills, Reports fatigue, Denies fever(s) and Denies headache(s) Eyes Denies change in vision ENT Denies dizziness, Reports otalgia, Denies headache(s), Reports nasal congestion, Reports sinus pain and Reports sore throat Card Denies chest pain Resp Denies change in phlegm color, Reports cough and Denies pain with cough Musc Denies myalgias Neuro Denies dizziness and Denies headache(s) Endo Reports fatigue Physical Exam Vital Signs: Last Vital Signs Temp 99.1 F 07/09/24 08:14 Pulse 84 07/09/24 08:14 BP 110/68 07/09/24 08:14 Pulse Ox 98 07/09/24 08:14 Oxygen Delivery Method Room Air 07/09/24 08:14 BMI result Body Mass Index 29.3 General: Non-toxic, NAD. Speaking full sentences. Skin: Warm dry throughout Eye: EOMI HENT: Airway patent. Uvula midline. Minimal pharyngeal erythema or edema. No SHOP MANAGER. No exudates. Bilateral canals clear. TM non-erythematous, non-bulging. No TM perforation or hemotympanum noted. + maxillary sinus tenderness to palpation Respiratory: CTA bilaterally. No wheezes, rales or rhonchi Cardiac: RRR. No murmur MSK: Full ROM extremities. Neurology: Alert. No aphasia or facial droop. Gait without abnormality Psych: Good mood and affect Results AMB Rapid Strep AMB Rapid Strep Negative Last Edit by CHAPO Murguia on 07/09/24 08: 28 Results Reviewed Results Reviewed: Laboratory Last Values Strep Scn Rapid Clinic Negative 07/09/24 08:21 Assessment & Plan Assessment & Plan (1) Sinusitis: Code(s): J32.9 - Chronic sinusitis, unspecified Qualifiers: Sinusitis location: maxillary Chronicity: acute Recurrence: non-recur rent Qualified Code(s): J01.00 - Acute maxillary sinusitis, unspecified Plan: Patient seen and evaluated. Augmentin for sinuses Strep negative Discussed antihistamine OTC for sneezing Tessalon for cough prn Patient gave verbal understanding and had no additional questions or concerns at time of discharge All questions answered Orders: Orders AMB Rapid Strep Screen Today Z13.9 - Encounter for screening, unspecified Medications: New amoxicillin-pot clavulanate 875-125 mg 1 tab PO BID 20 tabs 0RF benzonatate 200 mg PO BID-TID PRN 14 caps 0RF cough Coding Level of Care Code Est Pt Level 3 (44875) Diagnoses Acute non-recurrent maxillary sinusitis J01.00 Sinusitis location: maxillary Chronicity: acute Recurrence: non-recurrent
== END 2024-07-09 08:30 | disposition home or self-care (01) ==
PROVIDERS: PCP Internal Medicine; Visit Provider Physician Assistant
DX: J01.00 Acute maxillary sinusitis, unspecified (principal); Z13.9 Encounter for screening, unspecified

== ENCOUNTER → 2024-07-09 08:01 | Outpatient (BNVA) | payer OTHER, SELFPAY | PROVIDERS: PCP Internal Medicine; Visit Provider Physician Assistant | DX: J01.00 Acute maxillary sinusitis, unspecified (principal) | CPT/HCPCS: 87880 ==

== ENCOUNTER → 2024-07-23 08:09 | Outpatient (REF) | payer OTHER, SELFPAY | LOC: HO.SL 08:09 | PROVIDERS: PCP Internal Medicine; Visit Provider Internal Medicine | DX: G47.30 Sleep apnea, unspecified (principal); R06.83 Snoring | CPT/HCPCS: 95806 ==

== ENCOUNTER → 2024-07-23 08:39 | Outpatient (BNV) | payer OTHER, SELFPAY | PROVIDERS: PCP Internal Medicine; Visit Provider Internal Medicine | DX: R06.83 Snoring (principal); G47.10 Hypersomnia, unspecified | CPT/HCPCS: 95806 ==

== ENCOUNTER 2024-09-06 14:04 | Outpatient (AMB) | payer OTHER, SELFPAY ==
[2024-09-06 14:06] VITALS: BP 122/80; PULSE 84; RESP 16; TEMP 36.9; O2SAT 98; BMI 29.3
--- NOTE | 2024-09-06 14:06 | MHC.OFFWIV ---
Intake Vital Signs 09/06/24 14:06 Height 5 ft 1 in Weight 155 lb BMI 29.3 BP 122/80 Blood Pressure Location Lt brachial Position Sitting Respiration 16 Pulse 84 Pulse Source Pulse Oximeter Temp 98.4 F Temp Source Oral Pulse Oximetry (%) 98 Oxygen Delivery Method Room Air Intake Visit Reasons: EP-Diarrhea & stomach pain Since trip [facility] 2W Intake Note: Pt is here today c/o diarrhea and stomach pain since trip from [facility] x2wks Patient Tobacco Use Status: Never used Tobacco Allergies prednisolone Adverse Reaction (Unknown, Verified 09/06/24 14:12) shortness of breath Medication List - Last Reconciled 09/06/24 by Yasemin Wood, EXAMINATION SCORER-BC meloxicam 15 mg PO DAILY HPI HPI Comments History of Present Illness Details History - The patient is a 48 year old female presenting with abdominal pain and diarrhea following recent travel to [facility]. - Symptoms began two days after returning from [facility], with initial presentations of soft stools and urgency, persisting without improvement, though slightly firmer in the last two days. Arrived home after 1 month in [facility] on 08/23 started w/ sx 08/25/24 - Father, a travel farm technician, experienced similar symptoms temporarily, resolving within two days. - No use of medication for diarrhea yet, and denies fever, chills, or blood in the stool. Tolerating po intake. Physical Exam General: Awake, alert. No apparent distress Eyes: Sclera and conjunctiva clear bilaterally MMM Cardiovascular: Regular rate and rhythm Respiratory: Clear to auscultation bilaterally Abd soft, normoactive bs x 4, nontender, no guarding or rigidity Discussion Notes I discussed with the patient that her symptoms are consistent with traveler's diarrhea, a common condition following trips to regions where food and water may be contaminated. As there has been no spontaneous resolution, despite the absence of fever and significant dehydration symptoms, I recommended initiating antibiotic therapy. I explained the potential of bacterial contamination as a causative factor and suggested azithromycin as an appropriate treatment given its efficacy. I presented two dosing options?1000 mg single dose or 500 mg daily over three days?with equivalent efficacy and minimal difference in side effects. I emphasized the importance of maintaining electrolyte balance and proper hydration, suggesting the addition of oral rehydration methods like sports drinks and foods high in potassium. If symptoms persist or worsen, I advised a follow-up evaluation, mentioning the possibility of further diagnostic testing if indicated, especially to assess for parasitic infection, which is less likely given her current improvement trend. Additionally, non-prescription loperamide was recommended for acute management of symptoms with attention to dosage limits. The patient consented to the plan. Assessment and Plan 1. Traveler's Diarrhea: The patient exhibits signs of traveler's diarrhea post[place] travel, likely bacterial in nature. I advised starting azithromycin, with an option between a single 1000 mg dose or 500 mg daily for three days, given the absence of parasitic infection indicators. Symptomatic relief through loperamide was recommended, with healthcare guidance on monitoring and not exceeding recommended doses. The necessity for electrolytic and fluid balance was stressed via increased salt and fluid intake, using solutions like Gatorade. If symptoms persist or worsen, such as fever or severe abdominal pain, further medical evaluation will be arranged. Patient Instructions - Begin azithromycin treatment as discussed?1000 mg single dose - Take htvp-ptb-cjlylyq loperamide after episodes of diarrhea, not exceeding six tablets in 24 hours. - Increase fluid intake, including electrolyte solutions like Gatorade, to maintain hydration. - Consume foods rich in potassium and sodium, such as bananas, nuts, or potatoes. - Seek medical attention if symptoms do not improve, or if you develop fever or severe pain. Consent Patient was informed and verbally consented to the use of an ambient scribe for clinic note documentation during this visit. [facility] Medical History Elevated LFTs Vertigo COVID-19 Right shoulder pain Back pain Normal Pap smear Annual physical exam Surgical History No pertinent past surgical history Family History Father No problems noted. 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 Medications: New azithromycin 500 mg PO ONCE 2 tabs 0RF Coding Level of Care Code Est Pt Level 3 (72601) Diagnoses Travelers' diarrhea A09
== END 2024-09-06 14:27 | disposition home or self-care (01) ==
LOC: HO.HMCWIC 14:04
PROVIDERS: PCP Internal Medicine; Visit Provider Nurse Practitioner Family
DX: A09 Infectious gastroenteritis and colitis, unspecified (principal)

== ENCOUNTER → 2024-09-06 14:04 | Outpatient (BNVA) | payer OTHER, SELFPAY | PROVIDERS: PCP Internal Medicine; Visit Provider Nurse Practitioner Family ==

== ENCOUNTER → 2024-09-24 07:30 | Outpatient (BNV) | payer OTHER, SELFPAY | PROVIDERS: PCP Internal Medicine; Visit Provider Internal Medicine | DX: Z12.31 Encounter for screening mammogram for malignant neoplasm of breast (principal) | CPT/HCPCS: 77063; 77067 ==

== ENCOUNTER 2024-09-24 07:38 | Outpatient (REF) | payer OTHER, SELFPAY | END 2024-09-24 07:39 | disposition home or self-care (01) | LOC: HO.MAMMO 07:38 | PROVIDERS: PCP Internal Medicine; Visit Provider Internal Medicine | DX: Z12.31 Encounter for screening mammogram for malignant neoplasm of breast (principal) | CPT/HCPCS: 77063; 77067 ==

== ENCOUNTER 2025-04-03 07:58 | Outpatient (AMB) | payer OTHER, SELFPAY ==
--- NOTE | 2025-04-03 08:03 | MHC.OFFWIV ---
Intake Vital Signs 04/03/25 08:04 Height 5 ft 1 in Weight 156 lb BMI 29.5 BP 116/82 Blood Pressure Location Lt brachial Position Sitting Pulse 81 Pulse Source Pulse Oximeter Temp 98.3 F Temp Source Oral Pulse Oximetry (%) 98 Oxygen Delivery Method Room Air Intake Visit Reasons: EP UTI? Intake Note: Patient presents with c/o urinary urgency & burning since yesterday. Patient also presents with sore throat x3 days. Patient Tobacco Use Status: Never used Tobacco Allergies prednisolone Adverse Reaction (Unknown, Verified 04/03/25 08:06) shortness of breath Do you need a note to return to daycare/school/sports/work: Yes HPI HPI Comments History of Present Illness Details This is a 49-year-old female with no stated past medical history presenting for evaluation of dysuria and urinary frequency that started last evening. Patient denies having any fevers, chills, vaginal discharge or abdominal pain. Additionally, patient reports having a sore throat for the past 2 days and denies any associated symptoms including ear pain, shortness for breath, cough or difficulty swallowing. The patient has not taken any medication for treatment of her discomfort. [facility] Medical History Elevated LFTs Vertigo COVID-19 Right shoulder pain Back pain Normal Pap smear Annual physical exam Surgical History No pertinent past surgical history Family History Father No problems noted. 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 Cognitive needs: No Hearing needs: No Vision needs: No Review of Systems Const All systems reviewed & are unremarkable except as noted in HPI and below Denies body aches, Denies chills, Denies fatigue and Denies fever(s) Eyes Reports no additional complaints and Denies itchy eyes ENT Reports no additional complaints and Denies lip swelling Card Reports no additional complaints and Denies dyspnea Resp Denies chest congestion, Denies cough and Denies dyspnea GI Reports no additional complaints and Denies abdominal pain Reports nocturia, Reports dysuria, Denies urinary incontinence, Denies urinary urgency, Denies vaginal discharge and Denies vaginal pruritus Musc Reports no additional complaints Skin/Breast Reports system reviewed and no additional complaints, except as documented Neuro Reports no additional complaints Psych Reports no additional complaints Endo Reports no additional complaints and Denies fatigue Jesús/Lymph Reports no additional complaints Aller/Immun Reports no additional complaints, Denies urticaria, Denies itchy eyes, Denies lip swelling and Denies seasonal rhinorrhea Physical Exam Vital Signs: BMI result Body Mass Index 29.5 Const General: cooperative, healthy appearing, comfortable, no acute distress, well developed, alert, awake and Physically active; No in distress, ill appearing, lethargic or patient obtunded Nutritional Appearance: well nourished Orientation/consciousness: patient oriented x3, No patient obtunded and No lethargic Limitations: no limitations HEENT Head: Yes normal to inspection and Yes normocephalic Ears: hearing grossly normal bilaterally, external ears normal, TM's normal bilaterally and EAC's normal General nose exam: Normal external nose present Face and sinus: Yes normal facial exam and Yes sinuses nontender Mouth: Normal oral and palatal mucosa present, oropharynx normal, moist mucous membranes and breath no malodorous Throat: Yes posterior oropharynx normal (There is no edema, erythema or exudates of the posterior oropharynx) and No postnasal drainage Eyes General: appearance normal, both eyes and all related structures Neck Lymphatic: no lymphadenopathy noted Resp Effort & Inspection: normal respiratory effort and able to speak in complete sentences Auscultation: clear to auscultation bilaterally Cardio Rate: regular rate Rhythm: regular rhythm GI Palpation (GI): Soft to palpation, nontender, no guarding and not rigid General: Yes Bimanual renal exam normal bilaterally, Yes bladder normal to palpation and Yes no CVA tenderness Bimanual exam- vagina & uterus: bladder normal to palpation Back/Spine/Pelvis Back: no CVA tenderness Neuro General: patient oriented x3 and No patient obtunded Psych Appearance: grossly normal Mental Status: mental status grossly normal Insight: Good insight present (Psych) Judgement: Good judgement present (Psych) Results AMB Urinalysis, Automated UA Leukoctes 15 Debra/uL Last Edit by Jazmyne Meier CMA on 04/03/25 08:20 UA Nitrite Negative Last Edit by Jazmyne Meier CMA on 04/03/25 08:20 UA Urobilinogen 0.2 mg/dL Last Edit by Jazmyne Meier CMA on 04/03/25 08:20 UA Protein 0 mg/dL Last Edit by Jazmyne Meier CMA on 04/03/25 08:20 UA pH 6.0 Last Edit by Jazmyne Meier, RAJESH on 04/03/25 08:20 UA Blood 10 Rom/uL Last Edit by Jazmyne Meier CMA on 04/03/25 08:20 UA Specific [place] 1.030 Last Edit by Jazmyne Meier CMA on 04/03/25 08:20 UA Ketone Negative Last Edit by Jazmyne Meier CMA on 04/03/25 08:20 UA Bilirubin 0 mg/dL Last Edit by Jazmyne Meier CMA on 04/03/25 08:20 UA Glucose 0 mg/dL Last Edit by Jazmyne Meier CMA on 04/03/25 08:20 AMB Rapid Strep AMB Rapid Strep Negative Last Edit by Jazmyne Meier CMA on 04/03/25 08:21 Results Reviewed Results Reviewed: Rapid strep is negative; urinalysis is reviewed in his positive for leukocytes and hematuria. Urine culture pending. Assessment & Plan Assessment & Plan (1) Dysuria: Comment: Patient's urinalysis is reviewed and a urine culture is pending. Patient will be discharged home with antibiotic therapy. Code(s): R30.0 - Dysuria Plan: Keflex t.i.d. x7 days; Pyridium 100 mg t.i.d. p.r.n. dysuria. (2) Pharyngitis: Comment: Rapid strep test is negative. Code(s): J02.9 - Acute pharyngitis, unspecified Qualifiers: Pharyngitis/tonsillitis etiology: unspecified etiology Qualified Code(s): J02.9 - Acute pharyngitis, unspecified Plan: Naprosyn or ibuprofen as needed for discomfort, increase clear fluids daily, hot tea with honey. Orders: Orders Urine Culture Today R30.0 - Dysuria AMB Urinalysis Automated Today Z13.9 - Encounter for screening, unspecified AMB Rapid Strep Screen Today Z13.9 - Encounter for screening, unspecified Medications: New cephalexin 500 mg PO Q8H 21 caps 0RF phenazopyridine (Pyridium) 100 mg PO TID PRN 10 tabs 0RF painful urination Coding Level of Care Code Est Pt Level 3 (36508) Diagnoses Dysuria R30.0 Pharyngitis, unspecified etiology J02.9 Pharyngitis/tonsillitis etiology: unspecified etiology Time Spent (min) 20
[2025-04-03 08:04] VITALS: BP 116/82; PULSE 81; TEMP 36.8; O2SAT 98; BMI 29.5
== END 2025-04-03 08:30 | disposition home or self-care (01) ==
PROVIDERS: PCP Internal Medicine; Visit Provider Physician Assistant
DX: R30.0 Dysuria (principal); J02.9 Acute pharyngitis, unspecified; Z13.9 Encounter for screening, unspecified

== ENCOUNTER 2025-04-03 07:58 | Outpatient (REF) | payer OTHER, SELFPAY ==
--- OUTSIDE RECORDS SUMMARY | 2025-04-03 11:54 | XMS_ITS | Clinical Summary ---
Author Organization [address] Address [address] [place] [phone] Phone Care Team Providers Care Lead Manufacturing Technician Name Role Phone Anabel Tay MD Primary Care Provider [phone] Medications Nortrel 135, 28, 1-35 mg-mcg per tablet TAKE 1 TABLET BY MOUTH DAILY 84 tablet 08/04/2024 Active Encounters Date Type Department Care Team Description 02/27/2025 Telephone Obstetrics and Gynecology - [address] [phone] Shira Doyle CNM 02/01/2025 Telephone [facility] - [address] [phone] Guerita Link CNM from Last 3 Months Surgical History Surgery Date Site/Laterality Comments OTHER SURGICAL HISTORY PROCEDURE: DENIES PREVIOUS SURGERY Medical History Medical History Date Comments Historical Medical DX 05/23/2009 DX:NO ACTI VE MEDICAL PROBLEMS Family History Medical History Relation Name Comments Other: alive and well Father Arthritis Maternal Grandfather osteoar thritis Diabetes Maternal Grandmother Other: alive and well Mother Breast cancer Paternal Grandmother unsure of age at dx Blindness Neg Hx Cancer of Small Bowel Neg Hx Cataracts Neg Hx Colon cancer Neg Hx Glaucoma Neg Hx Macular degeneration Neg Hx Ovarian cancer Neg Hx Pancreatic cancer Neg Hx Stomach cancer Neg Hx Strabismus Neg Hx Uterine cancer Neg Hx Relation Name Status Comments Father Alive A&W Maternal Grandfather osteoar thritis Maternal Grandmother Alive DMII Mother Alive A&W Paternal Grandfather Alive Breast CA Paternal Grandmother AMI Son Alive A&W Social History Tobacco Use Types Packs/Day Years Used Date Smoking Tobacco: Never Smokeless Tobacco: Never Alcohol Use Standard Drinks/Week Comments Yes 0 (1 standard drink = 0.6 oz pur e alcohol) Comments Unknown Sex and Gender Information Value Date Recorded Sex Assigned at Not on file Legal Sex Female 5:43 PM EST Gender Identity Not on file Sexual Orientation Not on file Obstetrics History Para Term AB IAB SAB Ectopic Multiple Livin g Live Births 2 2 2 2 2 Date Outcome GA Total Labor Labor/2nd/3rd Weight Sex Type Anes PTL Flakita A1 A5 Name Clin 004 Term 38w 0d 2892 g (102 oz) M Vag-S pont Living Delivery Location:[place] 011 Term 37w 4d 2807 g (99 oz) F VagS pont Living Delivery Location:[facility] Last Filed Vital Signs Vital Sign Reading Time Taken Comments Blood Pressure 122/77 06/15/2023 2:36 PM EST Pulse 77 01/13/2022 1:56 PM EDT Temperature - - Respiratory Rate - - Oxygen Saturation - - Inhaled Oxygen Concentration - - Weight 72.5 kg (159 lb 12.8 oz) 06/15/2023 2:36 PM EST Height 154.9 cm (5' 1 ) 06/15/2023 2:36 PM EST Body Mass Index 30.19 06/15/2023 2:36 PM EST Plan of Treatment Upcoming Encounters Date Type Department Care Team (Late st Contact Info) Description 04/10/2025 8:45 AM EDT Office Visit Obstetrics and Gynecology - [address] [phone] Agueda Olivera, LEON [address] [place], [place] Health Maintenance Due Date Last Done Comments Breast Cancer Screening 1977 Colorectal Cancer Screening: Colonoscopy 1977 Cervical Cancer Screening: HPV 1998 Hepatitis B Vaccines (2 of 3 - 19+ 3-dose series) 03/04/2012 02/05/2012 DTaP,Tdap,and Td Vaccines (2 - Td or Tdap) 04/24/2021 04/24/2011 HIV Screening 05/21/2022 Hepatitis C Screening 05/21/2022 Social Influencers of Health Screening 05/21/2022 Depression Screening 06/11/2024 COVID-19 Vaccine (1 - 2024-2 5 season) 2025 Influenza Vaccine (#1) 2025 RSV Immunization Adult Patie nts (1 - 1-dose 75+ series) 2052 Hepatitis A Vaccines Aged Out 02/28/2012 No long er eligible based on patient's age to complete this topic HIB Vaccines Aged Out No longer eligi ble based on patient's age to complete this topic HPV Vaccines Aged Out No longer eligi ble based on patient's age to complete this topic IPV Vaccines Aged Out No longer eligi ble based on patient's age to complete this topic MMR Vaccines Aged Out No longer eligi ble based on patient's age to complete this topic Meningococcal ACWY Vaccine Aged Out N o longer eligible based on patient's age to complete this topic Meningococcal B Vaccine Aged Out No l onger eligible based on patient's age to complete this topic Pneumococcal Vaccine: Pediat rics (0 to 5 Years) and At-Risk Patients (6 to 49 Years) Aged Out No longer eligi ble based on patient's age to complete this topic RSV Immunization Patients Un isha 20 months Aged Out No longer eligible b ased on patient's age to complete this topic Varicella Vaccines Aged Out No longer eligible based on patient's age to complete this topic Insurance [employer] Care Teams Lead Manufacturing Technician Relationship Specialty Start Date End Date Anabel Tay MD [address] [place] [phone] PCP - General Internal Medicine 12/30/20
== END 2025-04-03 07:59 | disposition home or self-care (01) ==
LOC: HO.LNP 07:58
PROVIDERS: PCP Internal Medicine; Visit Provider Physician Assistant
DX: R30.0 Dysuria (principal); J02.9 Acute pharyngitis, unspecified; R39.15 Urgency of urination
CPT/HCPCS: 81003; 87086; 87880

== ENCOUNTER 2025-04-07 11:03 | Outpatient (AMB) | payer OTHER, SELFPAY ==
--- NOTE | 2025-04-07 11:07 | MHC.PC.OV ---
Vital Signs 04/07/25 11:09 Height 5 ft 1 in Weight 158 lb BMI 29.9 BP 120/70 Blood Pressure Location Rt brachial Position Sitting Respiration 17 Pulse 78 Pulse Source Pulse Oximeter Temp 98.1 F Temp Source Oral Pulse Oximetry (%) 96 Oxygen Delivery Method Room Air Intake Visit Reasons: Annual PE Intake Note: Pt is here today for PE. Allergies prednisolone Adverse Reaction (Unknown, Verified 04/07/25 11:10) shortness of breath Medication List - Last Reconciled 04/07/25 by Sammi Lang MD cephalexin 500 mg PO Q8H meloxicam 15 mg PO DAILY PRN Tobacco use date assessed: 04/07/25 Dental Screening Dental Screen Date: 04/07/25 Did you have a dental visit in the last 12 months?: Yes Did you have a dental problem in the last 6 months where you did not have access to dental care?: No Was dental information given to patient?: Patient has dentist HPI Annual PE HPI Details Pt [facility] Medical History Elevated LFTs Vertigo COVID-19 Right shoulder pain Back pain Normal Pap smear Annual physical exam Surgical History No pertinent past surgical history Family History Father No problems noted. 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 1. Little interest or pleasure in doing things: not at all 2. Feeling down, depressed, or hopeless: not at all 3. Trouble falling or staying asleep, or sleeping too much: several days 4. Feeling tired or having little energy: several days 5. Poor appetite or overeating: several days 6. Feeling bad about yourself - or that you are a failure or have let yourself or your family down: not at all 7. Trouble concentrating on things, such as reading the newspaper or watching television: not at all 8. Moving or speaking so slowly that other people could have noticed. Or the opposite - being so fidgety or restless that you have been moving around a lot more than usual: not at all 9. Thoughts that you would be better off or of hurting yourself in some way: not at all Total score: 3 Depression Screening Interpretation: Negative Depression Screening Done: Yes Source: Developed by Drs. Edson Dowell, Laura Santos, Mathew Ramirez and colleagues, with an educational jeanna from [employer]. Thrive Questionnaire Date Thrive assessed: 06/13/24 I am a: Patient What is your living situation today?: I have a steady place to live Within the past 12 months, did the food you bought not last and you didn't have the money to get more?: Never true Within the past 12 months, did you worry whether your food would run out before you got money to buy more?: Never true Do you have trouble paying for medicines?: No Do you have trouble getting transportation to medical appointments?: No Do you have trouble paying your heating and electricity bill?: No Do you have trouble taking care of your child, family member or friend?: No Do you have trouble with day-to-day activities such as bathing, preparing meals, shopping, managing finances, etc.?: No Are you currently unemployed and looking for a job?: No Are you interested in more education?: No Please select the resources that you would like help with: None Currently or been in a relationship where the following occur: No concerns reported THRIVE Score: 0 ETHAN-7 AMB Questionnaire ETHAN-7 Date ETHAN - 7 assessed: 04/07/25 Feeling nervous, anxious, or on edge: 1 = Several days Not being able to stop or control worryin = Several days Worrying too much about different things: 1 = Several days Trouble relaxin = Several days Being so restless that it is hard to sit still: 0 = Not at all Becoming easily annoyed or irritable: 0 = Not at all Feeling afraid as if something awful might happen: 0 = Not at all Total ETHAN-7 score (0-4 normal; 5-9 mild; 10-14 moderate; 15-21 severe): 4 Source: Developed by Drs. Edson Dowell, Laura Santos, Mathew Ramirez and colleagues, with an educational jeanna from [employer]. Review of Systems Const All systems reviewed & are unremarkable except as noted in HPI and below ENT Reports no additional complaints Card Reports no additional complaints Resp Reports no additional complaints Physical exam (Primary Care) Vital Signs: Last Vital Signs Temp 98.1 F 04/07/25 11:09 Pulse 78 04/07/25 11:09 Resp 17 04/07/25 11:09 BP 120/70 04/07/25 11:09 Pulse Ox 96 04/07/25 11:09 Oxygen Delivery Method Room Air 04/07/25 11:09 BMI result Body Mass Index 29.9 Tobacco/Smoking Status: Tobacco use Status Tobacco use date assessed 04/07/25 04/07/25 11:12 Patient Tobacco Use Status Never used Tobacco 04/07/25 11:08 e-Cigarette/Vaping Use Never Used 04/07/25 11:08 PHQ-9: PHQ-9 Score PHQ-9: Total score 3 04/07/25 11:55 Depression Screening Interpretation: Negative Thrive Assessment: Date of Thrive Assessment Date Thrive assessed 06/13/24 04/07/25 11:08 Currently or been in a relationship where the following occur: No concerns reported Const General: no acute distress HENMT Head: Yes normal to inspection Ears: TM's normal bilaterally Mouth: Normal oral and palatal mucosa present Throat: Yes posterior oropharynx normal Eyes General: appearance normal, both eyes and all related structures Neck Neck: Yes no lymphadenopathy and Yes supple Resp Effort & Inspection: normal respiratory effort Auscultation: clear to auscultation bilaterally Cardio Rhythm: regular rhythm Heart sounds: S1 normal heart sound present and S2 normal heart sound present GI Inspection: Yes normal to inspection Palpation (GI): Soft to palpation Percussion: Yes normal to percussion Auscultation: normal bowel sounds Coding Level of Care Code Est Pt Prev Care 40-64y(33368) Diagnoses Annual physical exam Z00.00 Normal Pap smear Assessment & Plan Assessment & Plan (1) Annual physical exam: Code(s): Z00.00 - Encounter for general adult medical examination without abnormal findings Category: Medical Plan: Well-balanced diet regular physical activity discussed with the patient. She will have a fasting blood work. Patient is up-to-date with the mammogram and Pap smear by brake lining maker. Cologuard will be checked (2) Normal Pap smear: Comment: brake lining maker Maxwell 2020, 2022 Category: Medical Plan: f/u Pharmacy Sales Assistant Orders: Orders Comprehensive Maunie. Panel Fast Today Z00.00 - Encounter for general adult medical examination without abnormal findings Vitamin D 25-OH Total Today Z00.00 - Encounter for general adult medical examination without abnormal findings Complete Blood Count Auto Diff Today Z00.00 - Encounter for general adult medical examination without abnormal findings Lipid Panel Today Z00.00 - Encounter for general adult medical examination without abnormal findings TSH reflex Free T4 Today Z00.00 - Encounter for general adult medical examination without abnormal findings Referrals Cologuard Test Z12.11 - Encounter for screening for malignant neoplasm of colon, Z12.12 - Encounter for screening for malignant neoplasm of rectum Medications: Changed From meloxicam 15 mg PO DAILY PRN To meloxicam 15 mg PO DAILY 30 tabs 0RF
[2025-04-07 11:09] VITALS: BP 120/70; PULSE 78; RESP 17; TEMP 36.7; O2SAT 96; BMI 29.9
== END 2025-04-07 15:54 | disposition home or self-care (01) ==
LOC: HO.HMCC 11:04
PROVIDERS: PCP Internal Medicine; Visit Provider Internal Medicine
DX: Z00.00 Encounter for general adult medical examination without abnormal findings (principal)

== ENCOUNTER 2025-05-30 09:26 | Outpatient (AMB) | payer OTHER, SELFPAY ==
--- OUTSIDE RECORDS SUMMARY | 2025-05-30 09:29 | XMS_ITS | Clinical Summary ---
Author Organization [facility] [address] [place] [address] [place] [address] Phone Care Team Providers Care Prison Warden Name Role Phone Anabel Tay MD Primary Care Provider [phone] Allergies Active Allergy Reactions Criticality Noted Date Comments Prednisone Shortness of breath High 04/10/2025 Medications norethindrone-et hinyl estradiol (Nortrel , 28,) 1-35 mg-mcg per tabletIndication s: control counseling Take 1 tablet by mouth 1 (one) time each day. 84 tablet 04/10/2025 Active ibuprofen (ADVIL,MOTRIN) 800 mg tabletIndication s:Dysmenorrhea Take 1 tablet (800 mg total) by mouth every 8 (eight) hours if needed for mild pain. 60 tablet 04/10/2025 Active Encounters Date Type Department Care Team Description 04/17/2025 Telephone Obstetrics and Gynecology - [address] [phone] Agueda Olivera CNM 04/12/2025 Results Follow-Up Obstetrics and Gynecology - [address] [phone] Agueda Olivera CNM 04/10/2025 8:45 AM EDT Office Visit Obstetrics and Gynecology - [address] [phone] Agueda Olivera CNM Irregular bleeding (Primary Dx); Dysmenorrhea; control counseling; Dysuria; Screen for STD (sexually transmitted disease); examination or test, negative result from Last 3 Months Surgical History Surgery [...] Date Smoking Tobacco: Never Smokeless Tobacco: Never Tobacco Cessation:Counseling Given: Not Answered Alcohol Use Standard Drinks/Week Comments Yes 0 (1 standard drink = 0.6 oz pur e alcohol) Comments No Sex and Gender Information Value Date Recorded [...] (102 oz) M Vag-S pont Living Delivery Location:[place] 011 Term 37w 4d 2807 g (99 oz) F Vag-S pont Living Delivery Location:[facility] Filed Vital Signs Vital Sign Reading Time Taken Comments Blood Pressure 116/84 04/10/2025 8:59 AM EDT Pulse 94 04/10/2025 8:59 AM EDT Temperature - - Respiratory Rate - - Oxygen Saturation - - Inhaled Oxygen Concentration - - Weight 69.9 kg (154 lb) 04/10/2025 8:59 AM EDT Height 154.9 cm (5' 1 ) 06/15/2023 2:36 PM EST Body Mass Index 29.1 06/15/2023 2:36 PM EST Plan of Treatment Upcoming Encounters Date Type Department Care Team (Late st Contact Info) Description 07/14/2025 8:45 AM EST Office Visit Obstetrics and Gynecology [facility] [address] [place], [place] [phone] Agueda Olivera, CNM [address] [place], [place] Health Maintenance Due Date Last Done Comments Breast Cancer Screening 1977 Colorectal Cancer Screening: Colonoscopy 1977 Cervical Cancer Screening: HPV 1998 Hepatitis B Vaccines (2 of 3 - 19+ 3-dose series) 03/04/2012 02/05/2012 DTaP,Tdap,and Td Vaccines (2 - Td or Tdap) 04/24/2021 04/24/2011 HIV Screening 05/21/2022 Hepatitis C Screening 05/21/2022 Social Influencers of Health Screening 05/21/2022 Depression Screening 06/11/2024 COVID-19 Vaccine ( season) 2025 02/28/2024, 05/26/2021, 10/23/2020, Additional history exists Influenza Vaccine (#1) 2025 02/28/2024, 2020 RSV Immunization Adult Patients (1 - 1-dose 75+ series) 2052 Hepatitis [...] age to complete this topic Pneumococcal Vaccine: Pediatrics (0 to 5 Years) and At-Risk Patients (6 to 49 Years) Aged Out No longer eligible based on patient's age to complete this topic RSV Immunization Patients Under 20 months Aged Out No longer eligible based on patient's age to complete this topic Varicella Vaccines Aged Out No longer eligible based on patient's age to complete this topic Procedures Procedure Name Priority Date/Time Associated Diagnosis Comments POC , URINE DIAGNOSTIC Routine 04/10/2025 10:26 AM EDT Irregular bleeding examination or test, negative result TRICHOMONAS VAGINALIS ANTIGEN Routine 04/10/2025 9:33 AM EDT Irregular bleeding WET PREP, GENITAL Routine 04/10/2025 9:3 3 AM EDT Irregular bleeding CHLAMYDIA TRACHOMATIS AND NEISSERIA GONORRHOEAE PCR Routine 04/10/2025 9:33 AM EDT Screen for STD (sexually transmitted disease) from Last 3 Months Results * POC , urine manually resulted (04/10/2025 10:26 AM EDT) HCG, Ur POC Negative Negative POC hCG Int QC Pass? Yes Yes Urine Urine specimen obtained by clean catch procedure / Unknown 04/10/2025 10:26 AM EDT us Agueda Olivera CNM POINT OF CARE TEST ENTER/EDIT ORDERABLES Final Result * Trichomonas vaginalis antigen (04/10/2025 9:33 AM EDT) Trichomonas vaginalis Negative Negative 04/10/2025 9:50 PM EDT [facility] Swab Vaginal structure / Unknown Non-blood Collection / Unknown 04/10/2025 9:33 AM EDT 04/10/2025 9:34 AM EDT us Agueda Olivera CNM LAB MICROBIOLOGY - GENERAL ORD ERABLES Final Result [facility] [address] [place] [address], [place] [phone] * Chlamydia trachomatis and Neisseria gonorrhoeae molecular study (04/10/2025 9:33 AM EDT) Neisseria gonorrhoeae PCR Negative Negative LAB MOLECULAR DIAGNOSTICS METHOD 04/11/2025 9:45 AM EDT [facility] Chlamydia trachomatis PCR Negative Negative LAB MOLECULAR DIAGNOSTICS METHOD 04/11/2025 9:45 AM EDT [facility] Swab Cervix uteri structure / Unknown Non-blood Collection / Unknown 04/10/2025 9:33 AM EDT 04/10/2025 9:34 AM EDT us Agueda CUEVAS LAB MICROBIOLOGY - GENERAL ORD ERABLES Final Result Performing Organization Address [facility] Co de Phone Number [facility] [address] [place] [address], [place] [phone] * Wet prep, genital (04/10/2025 9:33 AM EDT) Clue Cells, Wet Prep Negative Negative 04/10/2025 9:50 PM EDT [facility] Yeast, Wet Prep Negative Negative 04/10/2025 9:50 PM EDT [facility] Trichomonas, Wet Prep Indeterminate Negative 04/10/2025 9:50 PM EDT [facility] Comment:Refer to Trichomonas antigen. Swab Vaginal structure / Unknown Non-blood Collection / Unknown 04/10/2025 9:33 AM EDT 04/10/2025 9:34 AM EDT us Agueda Olivera CNM LAB MICROBIOLOGY - GENERAL ORD ERABLES Final Result Performing Organization Address City/[facility]/ZIP Co de Phone Number [facility] [address] [place] [address], [place] [phone] from Last 3 Months Insurance [employer] Care Teams Prison Warden Relationship Specialty Start Date End Date Anabel Tay MD [address] [place] [phone] PCP - General Internal Medicine 12/30/20
--- OUTSIDE RECORDS SUMMARY | 2025-05-30 09:29 | XMS_ITS | Encounter Summary ---
Author Organization [facility] Address [address] [place] [address] Care Team Providers Care Security Threat Analyst Name Role Phone Anabel Tay MD Primary Care Provider [phone] Encounter Details Date Type Department Care Team ([facility] Contact Info) Description 04/12/2025 Results Follow-Up Obstetrics and Gynecology - [address] [place] [phone] Agueda Olivera CNM [address] [place] [address] Social History Tobacco Use Types Packs/Day Years Used Date Smoking Tobacco: Never Smokeless Tobacco: Never Alcohol Use Standard Drinks/Week Comments Yes 0 (1 standard drink = 0.6 oz pur e alcohol) Comments No Sex and Gender Information Value Date Recorded Sex Assigned at Not on file Legal Sex Female 5:43 PM EST Gender Identity Not on file Sexual Orientation Not on file documented as of this encounter Progress Notes * Vaishali Varela MA - 04/13/2025 9:36 AM EST Normal lab letter sent to patient. documented in this encounter Plan of Treatment Upcoming Encounters Date Type Department Care Team ([facility] Contact Info) Description 07/14/2025 8:45 AM EST Office Visit Obstetrics and Gynecology - [address] [phone] Agueda Olivera CNM [address] [place] [phone] documented as of this encounter Visit Diagnoses Not on filedocumented in this encounter Care Teams Security Threat Analyst Relationship Specialty Start Date End Date Anabel Tay MD [address] [place] [phone] PCP - General Internal Medicine 12/30/20 documented as of this encounter
--- NOTE | 2025-05-30 10:45 | AM.OFFWIN_ITS ---
Intake Vital Signs 05/30/25 10:55 Height 5 ft 1 in Weight 155 lb BMI 29.3 BP 124/70 Blood Pressure Location Rt brachial Position Sitting Respiration 16 Pulse 85 Pulse Source Pulse Oximeter Temp 98.2 F Temp Source Oral Pulse Oximetry (%) 99 Oxygen Delivery Method Room Air Intake Visit Reasons: EP Cough, congestion,sore throat([phone]) Intake Note: Pt is here today c/o cough and nasal congestion plus sore throat x1wk Patient Tobacco Use Status: Never used Tobacco Allergies prednisolone Adverse Reaction (Unknown, Verified 05/30/25 11:07) shortness of breath Medication List - Last Reconciled 05/30/25 by Yasemin Wood, [employer]- meloxicam 15 mg PO DAILY HPI HPI Comments History of Present Illness Details History of Present Illness The patient is a 49 year old female presenting with cough, nasal congestion, and a sore throat. Acute viral upper respiratory infection: - The patient reports a one-week history of cough, sore throat, and nasal congestion, which has been both stuffy and runny. - She reports her sore throat improves t emporarily with cough drops. - She has tried [id number] Mucinex and Tylenol Severe Cold and Flu, noting that the nighttime formulations offer some relief while the daytime versions do not. - The patient also reports occasional sn eezing. Review of Systems - HEENT: Reports sore throat, nasal jose a estion, rhinorrhea, and sneezing. - Respiratory: Reports cough. - Constitutional: Denies fever. Physical Exam General: Well developed, well nourished, in no acute distress. Appears stated age. Head: Normocephalic, atraumatic. Eyes: Pupils are equal, round and reactive to light and accommodation. Conjunctivae are clear. Ears: TM intact and clear bilat Nose: mild drainage and congestion, sinuses nonTTP Pharynx: Clear Lungs: Clear to auscultation bilaterally. No rales, rhonchi or wheeze noted. Good air flow in all vasquez. Occassional dry cough w/o distress Heart: Regular rate and rhythm. No murmurs, click, rubs or gallops are noted. Results - Tests and Diagnostics: Rapid strep peewee t was negative. Medical Decision Making The patient is a 49-year-old female with a one-week history of upper respiratory symptoms, including cough, nasal congestion, and sore throat. A rapid strep test performed in the office was negative, making bacterial pharyngitis unlikely. The clinical presentation is consistent with a viral upper respiratory infection, as multiple respiratory viruses are currently circulating. Given the viral etiology, antibiotics are not indicated, and the plan is for supportive care. For symptomatic relief, I have prescribed Tessalon for her cough and advised that the cough may outlast other symptoms. A nasal spray was offered for nasal symptoms, but the patient declined this treatment. I educated the patient on the importance of increased fluid intake to help thin secretions and the warning signs that warrant reevaluation, such as failure to improve after 14 days or the development of a high fever. Plan 1. Acute Viral Upper Respiratory Infecti on - The patient's symptoms are consistent with a viral upper respiratory infection, and a rapid strep test was negative. - No antibiotics were prescribed as the infection is presumed viral. - Prescribed Tessalon, to be taken up to three times per day as needed for cough. - Advised supportive care, including inc reased fluid intake. - The patient declined a prescription fo r a nasal spray to manage her nasal symptoms. - Instructed to seek reevaluation if sym ptoms do not improve after a total of 14 days, worsen, or if a high fever develops. Patient Instructions - Your illness is caused by a virus, so antibiotics will not help. - Take the prescribed medication, Tessal on, up to three times per day as needed for your cough. - It is normal for the cough to last vamshi rodriguez than your other symptoms. - Drink plenty of fluids to help thin ou t mucus in your lungs and nose, which will make it easier to clear. - You should be reevaluated if you are n ot getting better after 14 days, if you start to feel worse, or if you develop a high fever. Consent Patient was informed and verbally consented to the use of an ambient scribe for clinic note documentation during this visit. [facility] Medical History Elevated LFTs Vertigo COVID-19 Right shoulder pain Back pain Normal Pap smear Annual physical exam Surgical History No pertinent past surgical history Family History Father No problems noted. 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 Cognitive needs: No Hearing needs: No Vision needs: No Physical Exam Vital Signs: Last Vital Signs Temp 98.2 F 05/30/25 10:55 Pulse 85 05/30/25 10:55 Resp 16 05/30/25 10:55 BP 124/70 05/30/25 10:55 Pulse Ox 99 05/30/25 10:55 Oxygen Delivery Method Room Air 05/30/25 10:55 BMI result Body Mass Index 29.3 Results AMB Rapid Strep AMB Rapid Strep Negative Last Edit by Christa Villasenor CMA on 05/30/25 11:00 Results Reviewed Results Reviewed: Laboratory Last Values Strep Scn Rapid Clinic Negative 05/30/25 10:47 Assessment & Plan Assessment & Plan (1) Viral URI with cough: Code(s): J06.9 - Acute upper respiratory infection, unspecified Plan . Orders: Orders AMB Rapid Strep Screen Today Z13.9 - Encounter for screening, unspecified Medications: New benzonatate 100 mg PO TID PRN 30 caps 1RF cough 10 days Patient Instructions: Why aren't I getting antibiotics? I am so sick. I need them. I am empathetic that you're not feeling well & want you to recover quickly. 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 What does that mean? It means that I am aiding in reducing Antimicrobial resistance (AMR). Antimicrobial resistance (AMR) is one of the top global public health and development threats. It is estimated that bacterial AMR was directly responsible for 1.27 million global deaths in 2019 and contributed to 4.95 million deaths. The misuse and overuse of antimicrobials in humans, animals and plants are the main drivers in the development of drug-resistant pathogens. Taking an antibiotic increases a patient?s chance of becoming colonized or infected with a resistant organism, and taking an antibiotic when not needed can lead to the development of antibiotic resistance. So the why... is because I care! Coding Level of Care Code Est Pt Level 3 (27014) Diagnoses Viral URI with cough J06.9
[2025-05-30 10:55] VITALS: BP 124/70; PULSE 85; RESP 16; TEMP 36.8; O2SAT 99; BMI 29.3
== END 2025-05-30 11:38 | disposition home or self-care (01) ==
PROVIDERS: PCP Internal Medicine; Visit Provider Nurse Practitioner Family
DX: J06.9 Acute upper respiratory infection, unspecified (principal); Z13.9 Encounter for screening, unspecified

== ENCOUNTER → 2025-05-30 09:26 | Outpatient (BNVA) | payer OTHER, SELFPAY | PROVIDERS: PCP Internal Medicine; Visit Provider Nurse Practitioner Family | DX: J06.9 Acute upper respiratory infection, unspecified (principal) | CPT/HCPCS: 87880 ==